=== PATIENT | female | born 1995 | race Caucasian/White ===

== ENCOUNTER 2025-09-04 08:00 | Outpatient (RCR) | payer BC, SELFPAY ==
--- NOTE | 2025-09-04 10:15 | BH.SGPN.GN ---
Behaviors/Verbalizations/Mental Status: []Eye contact is fair. Motor activity is appropriate. Appearance is disheveled. Speech is Appropriate. Mood is anxious. Affect is flat. Thoughts are linear and logical. No evidence of psychosis. Client Response/Progress/Benefit: [] Pt was an active participant in group discussions. Attentive during psychoeducation on the 4 communication styles (Passive, Passive-Aggressive, Aggressive, and Assertive) and the obstacles to effective communication. Contributed during interactive discussion on the benefits of communicating effectively. Worked well with peers to identify the benefits and disadvantages to the different communication styles. Pt believes that they are primarily passive. Benefited from increased understanding of communication styles and how these can impact effective communication. Will continue in [facility] tx to prevent decompensation, gain healthy coping skills, and improve daily functioning. Narrative Note: []
--- NOTE | 2025-09-04 11:10 | BH.SGPN.GN ---
Behaviors/Verbalizations/Mental Status: []Pt alert and oriented, casually dressed and appropriately groomed. Eye contact good. Motor activity wnl. Speech within normal limits. Affect constricted, mood anxious. Thoughts linear, logical, no signs of hallucinations or delusions. Client Response/Progress/Benefit: [] Pt responded well to session AEB Pt listening attentively to others and listening to input during group discussion on the pay offs and costs of the different communication styles. Pt able to connect how current communication style impacts mental health. Connected with peers’ comments about the importance of using assertive communication. Pt seemed to benefit from increasing awareness of healthy strategies to improve communication. Pt stated she would like to work on being more direct with her family about her needs and feelings. Will continue PHP tx to prevent decompensation, improve daily functioning, and decrease anxious thoughts. Narrative Note: []
--- NOTE | 2025-09-04 14:46 | BH.MDN_ITS ---
Multi-Disciplinary Note Note 60-min Individual: Time Started:: 08:10 Date: 09/04/25 Purpose of session/treatment goals addressed:: Purpose of session was to build rapport, gather background information, and identify treatment goals for PHP. Eye Contact:: Fair Motor Activity:: Appropriate Appearance:: Casual Speech:: Soft Mood:: Anxious and Depressed Affect:: Flat Thoughts:: Linear, Logical and No evidence of hallucinations/delusions noted Staff Interventions:: CBT techniques, rapport building, strengths perspective and treatment planning Client Response:: Client reported she recently temporarily moved from [facility] to [facility] because she recognized she needed to be around her parents and family during this mental health struggle. Client stated her mental health has significantly been impacted since giving 4 months ago. Client reported she is experiencing "severe" anxiety and depression since the of her baby. Client stated on May 10 she physically collapsed while at the store because she was having a difficult time eating, drinking, and sleeping due to her . Client reported she was transported to a emergency department and while she was in the ER room she attempted to kill herself by wrapping a cord around her neck. Client stated prior to attempted to kill herself she has no history of suicidal thoughts or attempt. Client noted she believes she did in a panic and in the moment. Client stated she was hospitalized at an inpatient psychiatric facility for 1 week at [place] and then completed a PHP and IOP program with [facility] in [place]. Client stated after completing these treatment program she was able to go back to work for 1 month. Client stated she had been doing really well for those 4 weeks but all of a sudden abou t 4 weeks ago her anxiety "snapped". Client stated she was experiencing panic attacks every 20 minutes for 5 days straight. Client stated she got admitted to a inpatient psychiatric facility for 5 days. Client stated she then dropped down to a PHP program and had only been able to complete 8 days of this program before deciding she needed to move back to [place] temporarily to be closer to family and support. Client stated she has history of anxiety throughout her life since she was about 11 years old but noted this is the most significant her anxiety has ever been. Client stated there is a family history of her mom and her paternal grandmother having depression and anxiety. Client stated her anxiety and depression are making it challenging for her to function in most areas of life. Client reported she is having a hard time completing her ADLs. Client reported she also does feel disconnected to her 4-month-old. Client stated her has been extremely supportive throughout this time. Client stated she does think it would be helpful to be living with her mom and stepdad to have the additional support during this time. Client stated she is still experiencing "severe" anxiety and additional depression despite the inpatient hospital and PHP program. Client stated her panic attacks have improved since the hospitalization but still feels like she cannot really function. Client reported while she is in PHP she would like to have improved mood stability, improved ability to manage her anxiety and depression, and wants to be able to eventually get back to functioning at home and with work. Client stated she is going to continue FMLA from her job until she can feel more stable. Risks/Concerns:: Client has history of 1 suicide attempt on May 10, 2025. Client noted this was out of character for her and denied any suicidal thoughts prior to the attempt. Client stated she believes it was an impulsive action due to the extreme anxiety and depression she was experiencing with the added stress of not sleeping or eating for days. Client reported since the suicide attempt she has not experienced active suicidal ideation, plan or intention. Client stated she does experience passive thoughts of daily in which she has thoughts of "I wish I did not wake up". Client stated she does not have access to firearms or stockpiled medications. Client identifies her family to be significant protective factor. Progress Toward Goals/Plan:: No progress noted as today is first day in PHP. Plan is for client to start PHP today and will evaluate treatment plan at end of the week. While in PHP pt would like to focus on improving emotion regulation and improve mood stability. Pt to continue PHP to improve daily functioning, improve healthy coping skills, and prevent decompensation. Time Stopped:: 09:05
--- NOTE | 2025-09-04 14:47 | BH.MTP_ITS ---
Master Treatment Plan Patient Information Program Physician:: Dr. Juárez Primary Therapist:: Terri Vázquez [facility] Estimated LOS Estimated LOS (in weeks):: 1 Problem/Goal #1 Problem/Goal #1 Stated Goal:: Client will reduce overall frequency, intensity, and duration of the anxiety so that daily functioning is not impaired. Description of Barriers: Potential barriers include: cognitive distortions, severe anxiety, panic attacks, low motivation, and avoidance of anxiety provoking situations. Functional Impact: Pt has two psychiatric hospital admissions in the past four months. Pt most recently was hospitalized 3 weeks ago due to having panic attacks every 20 minutes for 5 days in a row. Pt started a PHP program in [facility] but did not complete the program because she decided she needed to temporarily move to [place] to be around family. Pt is 4 months post- which is when mental health symptoms decompensated. Pt endorses daily anxiety, uncontrollable worry, avoidance of being alone by herself or alone with her baby, and difficulty completing ADL's. Pt currently on leave from work due to her MH symptoms. Pt states her anxiety and depression have been impacting her bonding with her baby. Pt states her takes care a lot of the tasks for their baby due to her high anxiety. Goal Relevant Strengths/Supports: Pt is intelligent, resilient, strong desire to get better, and reports a strong support system. Objectives Objective #1: Stated Objective: Client will learn and implement 2-3 calming skills to reduce overall anxiety and manage anxiety symptoms. Interventions: Therapist and group sessions will help client identify physiological warning signs of anxiety, increase awareness of thoughts that increase anxiety, and identify behaviors that reinforce anxious symptoms. Group and individual counseling will teach client calming skills to help manage anxious symptoms. Discharge Criteria: Client will have achieved this goal when can verbalize at least 2 calming skills and reports skills successfully help reduce anxious symptoms. Target Date: 09/10/25 Problem/Goal #2 Problem/Goal #2 Stated Goal:: Client will decrease depressive symptoms, negative thoughts, and anhedonia. Description of Barriers: Potential barriers include: cognitive distortions, severe anxiety, panic attacks, low motivation, and avoidance of anxiety provoking situations. Functional Impact: Pt has two psychiatric hospital admissions in the past four months. Pt most recently was hospitalized 3 weeks ago due to having panic attacks every 20 minutes for 5 days in a row. Pt started a PHP program in [place] but did not complete the program because she decided she needed to temporarily move to [place] to be around family. Pt is 4 months post- which is when mental health symptoms decompensated. Pt endorses daily anxiety, uncontrollable worry, avoidance of being alone by herself or alone with her baby, and difficulty completing ADL's. Pt currently on leave from work due to her MH symptoms. Pt states her anxiety and depression have been impacting her bonding with her baby. Pt states her takes care a lot of the tasks for their baby due to her high anxiety. Goal Relevant Strengths/Supports: Pt is intelligent, resilient, strong desire to get better, and reports a strong support system. Objectives Objective #1: Stated Objective: Client will learn and utilize 2-3 healthy coping strategies to manage depressive symptoms. Interventions: Therapist and group therapy will utilize CBT techniques to assist client with understanding the connection between thoughts, feelings and behaviors. Education will be provided on behavioral activation. Therapist will assist client in learning internal coping strategies to manage depressive symptoms, along with helping client identify triggers. Discharge Criteria: Client will have achieved this goal when can verbalize and has practiced at least 2 healthy coping strategies that successfully manage depressive symptoms. Target Date: 09/10/25
--- NOTE | 2025-09-05 10:10 | BH.SGPN.GN ---
Behaviors/Verbalizations/Mental Status: []Pt alert and oriented, casually dressed and groomed. Eye contact fair. Motor activity appropriate. Speech within normal limits. Affect congruent, mood anxious. Thoughts linear, logical, no signs of hallucinations or delusions. Client Response/Progress/Benefit: []Pt responded well to session AEB pt listening attentively to others and providing input throughout group discussions. Pt worked with group to identify potential barriers to effective problem-solving. Pt attentive and engaged during psychoeducation about the different problem-solving styles (impulsive-careless, avoidant, and problem solving). Pt shared current problem-solving style they utilize is impulsive-careless style. Pt seemed to benefit from increased awareness of current problem-solving style and the impact this style has on their mental health. Will continue PHP tx to prevent decompensation, decrease anxious avoidance, and challenge negative thoughts. Narrative Note: []
--- NOTE | 2025-09-05 11:00 | BH.SGPN.GN ---
Behaviors/Verbalizations/Mental Status: []Client alert and oriented, casually dressed and groomed. Eye contact good. Motor activity appropriate. Speech within normal limits. Affect congruent, mood euthymic. Thoughts linear, logical, no signs of hallucinations or delusions. Client Response/Progress/Benefit: [] Pt engaged in session AEB contributing to discussion and engaging in small group. Attentive during discussion on strategies for more effectively solving problems in personal life. Pt participated in small group for activity and did well practicing problem-solving skills with the group in the moment. Pt identified a current problem they are struggling to solve as: anxiety about falling asleep. Reports next step in resolving this as: gathering more information. Appeared to benefit from gaining strategies to help Pt better manage daily problems. Will continue IOP tx improve distress tolerance, challenge distortions, and prevent decompensation. Narrative Note: [] Behaviors/Verbalizations/Mental Status: []Client alert and oriented, casually dressed and groomed. Eye contact good. Motor activity appropriate. Speech within normal limits. Affect congruent, mood euthymic. Thoughts linear, logical, no signs of hallucinations or delusions. Client Response/Progress/Benefit: [] Pt engaged in session AEB contributing to discussion and engaging in small group. Attentive during discussion on strategies for more effectively solving problems in personal life. Pt participated in small group for activity and did well practicing problem-solving skills with the group in the moment. Pt identified a current problem they are struggling to solve as: anxiety about falling asleep. Reports next step in resolving this as: gathering more information. Appeared to benefit from gaining strategies to help Pt better manage daily problems. Will continue IOP tx improve distress tolerance, challenge distortions, and prevent decompensation. Narrative Note: [] Behaviors/Verbalizations/Mental Status: []Client alert and oriented, casually dressed and groomed. Eye contact good. Motor activity appropriate. Speech within normal limits. Affect congruent, mood euthymic. Thoughts linear, logical, no signs of hallucinations or delusions. Client Response/Progress/Benefit: [] Pt engaged in session AEB contributing to discussion and engaging in small group. Attentive during discussion on strategies for more effectively solving problems in personal life. Pt participated in small group for activity and did well practicing problem-solving skills with the group in the moment. Pt identified a current problem they are struggling to solve as: anxiety about falling asleep. Reports next step in resolving this as: gathering more information. Appeared to benefit from gaining strategies to help Pt better manage daily problems. Will continue IOP tx improve distress tolerance, challenge distortions, and prevent decompensation. Narrative Note: [] Behaviors/Verbalizations/Mental Status: []Client alert and oriented, casually dressed and groomed. Eye contact good. Motor activity appropriate. Speech within normal limits. Affect congruent, mood euthymic. Thoughts linear, logical, no signs of hallucinations or delusions. Client Response/Progress/Benefit: [] Pt engaged in session AEB contributing to discussion and engaging in small group. Attentive during discussion on strategies for more effectively solving problems in personal life. Pt participated in small group for activity and did well practicing problem-solving skills with the group in the moment. Pt identified a current problem they are struggling to solve as: anxiety about falling asleep. Reports next step in resolving this as: gathering more information. Appeared to benefit from gaining strategies to help Pt better manage daily problems. Will continue IOP tx improve distress tolerance, challenge distortions, and prevent decompensation. Narrative Note: []
--- NOTE | 2025-09-05 15:20 | BH.MDN_ITS ---
Multi-Disciplinary Note Note 60-min Individual: Time Started:: 12:02 Date: 09/05/25 Purpose of session/treatment goals addressed:: Purpose of session was to address goals 1 and 2 from MTP. Eye Contact:: Fair Motor Activity:: Slowed Appearance:: Disheveled Speech:: Appropriate Mood:: Anxious and Depressed Affect:: Constricted Thoughts:: Racing and No evidence of hallucinations/delusions noted Staff Interventions:: CBT techniques, mindfulness skills, rapport building, strengths perspective, goal setting, taught coping skills (guided meditation practiced in session) and other (Provided handout for homework about unwanted intrusive thoughts) Client Response:: Pt reported she had a "rough" morning because the moment she woke up this morning she had obsessive thoughts that she will not be able to go to sleep tonight. Patient stated that obsessive thoughts were so bad that she had a panic attack with significant physical symptoms. Patient stated because of her physical symptoms of her anxiety she felt like it was unsafe of her to drive to [facility] this morning so she had to get one of her family members bring her this morning. Patient reported over the last week she has been having significant obsessive thoughts "all day" about not being able to sleep. Patient reported she is averaging about 7 or 8 hours of sleep but noted she has multiple wake ups throughout the night. Patient stated she is frustrated because she feels like she cannot function due to her anxiety. Patient reported her anxiety keeps her from driving, eating, completing task, and from functioning. Patient completed [place] Depression Scale (EPDS) and scored a 23 out of 30. Per this Depression Scale a score over 13 likely indicates depressive illness. Patient also completed the Anxiety Screening Scale (PASS) and she scored a 71 out of 93. This score puts her in the severe symptoms range for this scale. Patient reports daily worries and fears that she will not swift to her child. Patient stated she is constant worries that she has difficulty stopping. Patient and therapist discussed strategies and skills that she has learned in different [facility] and IOP programs she recently attended. Client states she does find breathing skills, grounding, and going for walks to be helpful with managing her anxiety. Client noted she does try to challenge negative thoughts but does not find this to be as helpful currently. Client stated being around her baby can make her anxiety worse especially if her baby is crying. Client stated if her baby is crying she starts to have the fear that her baby will cry in the evening which will wake client up and we will admit. Client reported she does make herself feel around her baby majority of the day because if she is not she feels guilty. Client receptive to trying small intentional a cts with her baby to help with the bonding. Client identified to goal she has is to do skin to skin contact at least 5 minutes every day with her baby and spend at least 10 minutes intentionally playing with her baby. Client and therapist work together to develop a evening sleep routine because client reported currently she does not have 1. Identified her new sleep routine will be to take her medication around 730, take a shower and do personal hygiene, doing guided meditation, and laying in bed by 9 to 9:30 PM. Discussed that if client is still not sleepy when she lays in bed to have different activities that she could do to help distract the brain like crossword instead of sitting there worrying that she is not tired yet. Patient stated she is receptive to the plan. Risks/Concerns:: Patient denies suicidal ideation, plan, intention. future oriented. Progress Toward Goals/Plan:: Progress limited as it is pt's second day in PHP. Pt is reporting "obsessive" worries about not being able to sleep from the morning until it is time to go to bed. Pt stated she has been trying to go on walks and get out of the house as ways to help decrease her anxiety. Pt responded well to practicing a 3 minute guided meditation in session today, stated she found it to be helpful with relaxing her. Pt is to continue PHP to improve daily functioning, increase healthy coping, and prevent decompensation. Time Stopped:: 12:57
--- NOTE | 2025-09-06 10:10 | BH.SGPN.GN ---
Behaviors/Verbalizations/Mental Status: [] Pt alert and oriented, casually dressed and groomed. Eye contact fair. Motor activity appropriate. Speech within normal limits. Mood: depressed and anxious. Affect: congruent. Thoughts linear, logical, no signs of hallucinations or delusions. Client Response/Progress/Benefit: [] Pt participated when prompted during group discussions. Attentive during psychoeducation on self-sabotage and its impact on mental health. Attentive as peers worked to define self-sabotage and identify reasons individuals perform self-sabotage behaviors (easy route at the time, feel as those we don't deserve any better, FOF, comfortable, etc). Attentive as peers identified the forms of self-sabotage that impact their mental health. Attentive during psychoeducation on types of self-sabotage; Procrastination, perfectionism, self-medication, poor communication,and chronic cancelling. Seemed to benefit from gaining awareness about the self-sabotage. Pt to continue PHP tx to improve daily functioning, decrease anxious avoidance, and prevent decompensation.
--- NOTE | 2025-09-06 11:05 | BH.SGPN.GN ---
Behaviors/Verbalizations/Mental Status: [] Eye contact is good. Motor activity is appropriate. Appearance is disheveled. Speech is Appropriate. Mood is dysthymic and anxious. Affect is congruent. Thoughts are linear and logical. No evidence of psychosis. Client Response/Progress/Benefit: [] Pt responded well to session, engaged and contributing. Pt discussed with group things that contribute to mental wellness life. With peers, pt discussed things that would sabotage one's mental health wellness. Pt identified things pt personally does to sabotage as "avoid and let other people do things for me". Pt attentive during psychoeducation on ways to reduce self-sabotage and pt selected "opposite-action, challenge negative thoughts,and accountability" as skills that could help pt reduce self-sabotaging behaviors. Pt appeared to benefit from learning skills and gaining awareness of self-sabotaging behaviors. Pt will continue PHP tx to maintain safety, prevent decompensation/re-admission to psych unit, and to improve functioning to return to work. Narrative Note: []
--- NOTE | 2025-09-06 15:16 | BH.MDN_ITS ---
Multi-Disciplinary Note Note 30-min Individual: Time Started:: 12:05 Date: 09/06/25 Purpose of session/treatment goals addressed:: Purpose of session was to address goals 1 and 2 from MTP. Eye Contact:: Good Motor Activity:: Appropriate Appearance:: Casual Speech:: Appropriate Mood:: Anxious Affect:: Congruent Thoughts:: Linear, Logical and No evidence of hallucinations/delusions noted Staff Interventions:: thought challenging, psychoeducation on: (anxiety and impact avoidance has ), CBT techniques, strengths perspective and taught coping skills Client Response:: Client reported she was able to complete all the tasks from her checklist made during individual session yesterday. client stated she did find it more challenging to do the task of guided meditation and taking a shower before bed. Client reported her helped encourage her to complete each task. Client stated the reason she didn't want to shower before bed was because she kept having the fearful thought that taking a shower before bed would wake up up too much. client reported she actually found the shower to be relaxing. Client stated she was able to get "really good sleep" last night. Client stated she woke up and didn't feel the panic about not being able to sleep tonight. Client reported she wasn't able to drive this morning to [facility] because she was anxious due to it raining this morning. Client stated she had her dad drive her here and wants to work on being able to eventually drive herself. Client stated her anxiety does result in her avoiding a lot of different situations. Client reported she avoids numerous tasks that are connected to taking care of her baby due to anxiety. Client stated she has been avoiding so many things that she now has lost confidence in her ability. client reported she avoids being alone with her baby, avoids being the one to feed her baby, has her take the baby when the baby is crying, and she avoids being alone by herself. Client connected to psychoeducation about how avoidance of anxious situations make anxiety worse. Client connected with education about use of a fear ladder to help her get back to functioning and decrease avoidance. Client stated the task she feels able and ready to work on is starting with feeding her baby instead of allowing her do it. client agreed it she has to engage in exposure to her anxiety provoking situations to help build her confidence and decrease her anxiety. Risks/Concerns:: Denies active suicidal ideation, plan, or intention to date. future oriented. Progress Toward Goals/Plan:: Progress noted with client reporting improved sleep last night by following through with the evening routine created in last individual therapy session. client also followed through with goals of engaging in two different bonding activities with her baby yesterday. Client was provided resource of a baby bonding class that is led through [facility] twice a month. Client stated she was interested in attending this class to continue helping with building the swift. Client receptive to working on decreasing her anxious avoidance by starting to take small exposure steps to dec rease anxiety. Plan is for client to continue PHP to improve daily functioning, decrease anxious avoidance, and prevent decompensation. Time Stopped:: 12:37
--- NOTE | 2025-09-07 09:00 | BH.SGPN.GN ---
Behaviors/Verbalizations/Mental Status: [] Eye contact is good. Motor activity is appropriate. Appearance is disheveled. Speech is Appropriate. Mood is depressed and anxious. Affect is congruent. Thoughts are linear and logical. No evidence of psychosis. Reviewed daily check in sheet and no reports of suicidal ideations or intent. Client Response/Progress/Benefit: [] Pt participated when prompted. Attentive. Daily symptom tracker notes /5 for depression and 3/5 for anxiety. She shared with the group that she drove herself to [facility] this morning. Elaborated on why this was a significant win which has resulted in increased confidence. Pt has been unable to drive due to anxiety since her recent psychiatric admission on 08/12/24. She is continuing to put conscious effort into utilizing daily skills and habits. Seeing progress per self-report. Benefited from group support, encouragement, and feedback. Will continue in [facility] to maintain safety, prevent decompensation, and improve functioning to return to work. Narrative Note: []
--- NOTE | 2025-09-07 10:30 | PCM.BH.PSYEV ---
Intake Vital Signs 09/07/25 11:23 Height 1.7 m Weight: 142.882 kg BP 145/83 H Pulse 66 Intake Visit Reasons: Post depression Allergies Penicillins Adverse Reaction (Verified 09/07/25 11:06) PT UNSURE OF REACTION quinidine Adverse Reaction (Verified 09/07/25 11:06) tachycardia Medications Medication Instructions Recorded Confirmed Type amlodipine 10 mg tablet (Norvasc) 10 mg PO DAILY 30 days #30 tabs 09/07/25 Rx clonidine HCl 0.1 mg tablet 0.1 mg PO TID 30 days #90 tabs 09/07/25 Rx hydroxyzine pamoate 50 mg capsule 50 mg PO BID PRN anxiety #60 caps 09/07/25 Rx lurasidone 40 mg tablet (Latuda) 40 mg PO DAILY 30 days #30 tabs 09/07/25 Rx quetiapine 100 mg tablet (Seroquel) 100 mg PO QHS 30 days #30 tabs 09/07/25 Rx sertraline 100 mg tablet (Zoloft) 100 mg PO DAILY 30 days #30 tabs 09/07/25 Rx trazodone 50 mg tablet 50 mg PO QHS #30 tabs 09/07/25 Rx PFSH () Surgical History (Updated 09/07/25 @ 11:33 by Terri Nevarez) History of delivery History of wisdom tooth extraction HPI () History of Present Illness History provided by: patient Chief complaint: Significant anxiety and depression HPI: Kristi is a 29y/o female who presented to [facility] Behavioral [facility] PHP program for further evaluation and treatment of depression and anxiety of peripartum onset. Patient reportedly had been doing well while she was with her daughter Ava but after she gave in May her mental health significantly declined. She became increasingly anxious and depressed and had significant difficulty eating, drinking, sleeping leading to her passing out on May 10 in a store in [place] where she was living with her and daughter. Her family took her to the ED ultimately in May due to her significant functional decline with poor ADLs and severe anxiety and depression and while awaiting acceptance to a facility she took the EKG leads and attempted to strangle herself. Ultimately she was hospitalized for a week. She reports they diagnosed her with bipolar disorder as she had a vague history of having a couple days at a time where she did not need as much sleep or rest and was productive. She was placed on medication and improved somewhat however early in August she suddenly began having severe anxiety and panic attacks which led to a second psychiatric admission where she was for 1 week and subsequently transition to a PHP. She was on Latuda 40 mg, Seroquel 100 mg, hydroxyzine as needed and had been started on Zoloft 50 mg at the beginning of this month and increased to 100 mg on . She had not yet completed the PHP program in [place] however stopped this program to move back to [place] to be near family (08/31/2025 ) and enrolled in the [facility] behavioral health PHP program. Since moving back patient still feels depressed, anxious, overwhelmed but is slightly better than previous. Reports that there had been some difficulties due to her, her , and her daughter Rosario moving in with patient's mother and stepfather in a small house that also has 3 dogs however they have been very helpful with her and with the baby. Despite doing somewhat better she notes awful appetite and has lost almost 100 pounds since her daughter was born, anhedonia, poor appetite, difficulty with sleep, low energy, poor concentration though that is slowly improving. Does note crying spells. She has also been having difficulty bonding with her baby more recently which is leading to increased stress and guilt. He is on Seroquel which helped with sleep initially and she feels it still helps her stay asleep but no longer feels like it helps her fall asleep so she finds her self anxious through most of the day make she is worried she will not be able to fall asleep. Sometimes still wakes up 1-2 times overnight, confirmed that she does not wake up overnight with the baby and that her family is presently doing that. In regards to her medication she does think Latuda was helpful, Zoloft she has noted some improvement anxiety but has been struggling with her depression, she said it was hypothesized that due to her poor p.o. intake she has not absorbing the Latuda very well and that may be causing it not necessarily the Zoloft. Also endorsed that she had significant mood swings with hormones and that some of her destabilization seem to correlate with her period. She notes she historically had problems with mood fluctuations with her periods as well but not to this extent. Anhedonia/Decreased interest: +Anhedonia Appetite: Very poor Sleep: Difficulty falling asleep Energy: Low energy Concentration: Was poor but slowly improving Memory: Difficulty Guilt: Struggling due to her difficulty bonding with her daughter Crying spells: Reports crying spells and that she is "very emotional." SI: Denies any active SI HI: No AH: No VH: Denies Psychosis: While in college she had an episode where she was very stressed and felt the room was on fire but was told later that it was not. Had no other episodes and this was self-limited. Margret: Reports she was diagnosed with bipolar 2 in the hospital, when asked why she said she has had periods where she did not feel like she needed much sleep or rest and was productive and would get things done. She never felt that these episodes were problems and she just thought that she was doing well, they would usually last a day or 2 at a time and does not note any long strings of symptoms or anything that negatively impacted her functioning and after these episodes were over she go back to normal and would not feel depressed, does note some change surrounding hormone fluctuations with her period as well. Anxiety: Significant anxiety regarding her daughter, difficulty bonding with her daughter, having it find a new job, driving, trying to fall asleep Panic attacks: Notes discrete episodes of anxiety that significantly worsened earlier this month OCD: No Eating d/o hx: No PTSD: Hx PTSD and reports a history of a trauma in her past that she did not disclose but also reports she had a very traumatic and had a and that this has been triggering for her and she is looking into EMDR Current psychiatric medications: Hydroxyzine 50 mg twice daily as needed, Latuda 40 mg daily, Seroquel 100 mg nightly, Zoloft 100 mg Side effect concerns: Notes she feels like her skin will get hot and random patches sometimes, she is also not sure if she has had worsened depression from any of the medications or if it is situational more due to poor p.o. intake with her Latuda Past psychiatric treatment Hx: -First age experiencing symptoms: Reports she has always been anxious and remembers being anxious all the way back to 5 years old but not to the point that impacted her functioning. These most recent symptoms started in May after the of her daughter -Previous diagnoses: Reports a diagnosis of bipolar 2 -Psychiatrist: Just moved back to the area and has yet to establish with one -Therapist: Has yet to establish with one in [place], participating in PHP program -Psychiatric hospitalizations: 1 week in May in [place] and a subsequent hospitalization at the beginning of August for 1 week followed by PHP -Suicide attempts: While patient was in the ED awaiting psychiatric placement in May she attempted to strangle herself with a 12-lead, reports it was impulsive and not planned and she had not been feeling that way leading up to that, no other attempts of suicide -NSSI: No -Medication trials: Reports being on Celexa for 14 years for some baseline anxiety that was helpful -ECT or TMS?: No Medical Hx: -Medical problems: HTN, ADITI wearing CPAP and reports compliance, malaria -Surgeries: C section and wisdom teeth -Allergies: quinine , and PNC -Medications: See home med list Substance use Hx: -Alcohol: No -Drugs: No -Rehab: No -Tobacco use: No Family Hx: -Mental illness: "Everybody has anxiety and depression." Dad's mom was hospitalized for post depression and patient's mom also struggled with depression -Suicide attempts or completions: No -Substance Use: Aunt with issues with pills but is since , cousin with IV drug abuse and will use "anything you can inject" -General medical conditions: Cancer, DMII Psychosocial: -Born/raised: Born and raised in [place] -Childhood: Reports her childhood was "Pretty good" however her parents had an ugly divorce which caused anxiety -Parents: Currently living with mom and stepfather, her father lives around the [facility] and [place] and reports they are both very good source of support -Siblings: one brother and two step siblings who she gets along with very well -Current living situation and location: Moved back to [place] 1 week ago and is living with her mother, stepfather, their 3 dogs, her and her daughter. Prior to that she was in [place] and had been there for about 6 years, she moved there for work -Marital status: , her is from [place] but moved with her to [place] and subsequently moved back. 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 She reports she likes work and it gives her a sense of filament and would like to go back to work as able -Worship affiliation: Sikh, she attend [employer] - hx: Denies -Access to guns: Denies -Legal problems: Denies Review of systems () Narrative Medical ROS: General: Denies fever/chills HENT: Denies headache, denies stuffy nose, denies sore throat EYES: Denies changes in vision Resp: Denies cough, denies shortness of breath Cardiac: Denies chest pain GI: Denies abdominal pain, denies changes in bowel, denies nausea/vomiting : Denies changes in urination Extremity: Denies swelling MSK: Denies weakness Neuro: Denies any numbness/tingling Heme: Denies any bleeding or bruising Skin: Denies rashes Psychiatric: No complaints voiced Exam () Mental Status Exam- Psych () Appearance casually dressed, adequately groomed and obese Attitude cooperative and engaged Activity/Motor Behavior psychomotor slowing Speech regular rate and other (Slightly soft with decreased in flexion) Mood dysphoric Affect restricted Thought Process linear and logical Thought Content no delusions and no hallucinations Suicidal Ideation none Homicidal Ideation none Attention intact Concentration intact Sensorium/Orientation awake and alert Memory/Cognition intact Insight fair Judgement fair Exam () Narrative Exam Narrative: General: Alert, oriented, no apparent distress, morbidly obese HEENT: Atraumatic, normocephalic Eyes: extraocular movements grossly intact Neck: Supple Respiratory: normal respiratory effort Cardiovascular: no edema appreciated GI: nondistended Extremities: Moving all extremities Neuro: No overt focal neurological deficits Psych: Cooperative, depressed Assessment & Plan () Assessment & Plan (1) Major depressive disorder, single episode, severe with peripartum onset: Plan: Symptoms based on my interview most consistent with MDD, single episode, severe with anxious distress and with peripartum onset. She had some vague anxiety earlier in life but does not seem that she had previously met MDD criteria until the of her daughter and since then has had poor appetite with weight loss, poor sleep, low energy, poor concentration, crying spells, guilt with anhedonia. Slightly better than she was initially but still reporting high levels of anxiety and depression. Just had her Zoloft increased to 100 mg 2 weeks ago and she is unsure yet how effective this is but thinks it may be helping her anxiety slightly but she is not sure if it could be worsening her depression but it was hypothesized to her by her previous provider that the worsen depression may impart be due to her poor p.o. intake with her Latuda. One of her first biggest complaints to me was her difficulty falling asleep and her anxiety throughout the day about sleep, discussed various options for medication adjustments and ultimately is agreed upon to try trazodone to help her fall asleep as Seroquel helps her stay asleep. Ultimately can adjust patient's other medications as well but had recent increase in Zoloft and hesitant to make multiple changes at once to be able to assess any positive or negative effects or side effects. Patient agreeable. Does seem that she has an association with hormonal shifts with her depression and anxiety and that she has further decompensations around the time of her period, She is to begin a control recommended by her OB which she has she is just yet to start which may help as she does feel when she was younger control helped her moods as well. Patient notes the diagnosis of bipolar II disorder, during her interview I was able to elicit vague symptoms that usually lasted a day or 2 and did not impact her functioning and when she was not feeling as motivated anymore she would go back to her usual self when they did seem to be some association with hormones as well, do not feel criteria were met based on my interview. r/o bipolar disorder. Plan The patient will begin PHP in Behavioral Health at [facility]. The structure, support, education, and group therapy are intended to prevent symptom escalation that could lead to a higher level of care, such as inpatient hospitalization. I expect the patient to demonstrate timely and meaningful improvement in acute symptoms. Based on a review of the patient's vitals and medical history, they are medically capable of tolerating the PHP level of care. The goal is to be successfully discharged to a lower level of care. Medications: New hydroxyzine pamoate 50 mg PO BID PRN 60 caps 0RF anxiety lurasidone (Latuda) must administer with food (at least 350 calories) 40 mg PO DAILY 30 tabs 0RF 30 days trazodone 50 mg PO QHS 30 tabs 0RF amlodipine (Norvasc) 10 mg PO DAILY 30 tabs 0RF 30 days clonidine HCl 0.1 mg PO TID 90 tabs 0RF 30 days quetiapine (Seroquel) 100 mg PO QHS 30 tabs 0RF 30 days sertraline (Zoloft) 100 mg PO DAILY 30 tabs 0RF 30 days Charges/Coding Multi Select Codes Behavior Health Behavior Health Psychiatric Evaluation: 44278 Psych Diag Exam w/ Medical Services
--- NOTE | 2025-09-07 10:40 | BH.NA ---
Physical Data Vital Signs Pulse Rate: 66 Blood Pressure: 145/83 Height/Weight Height: 1.7 m Weight:: 142.882 kg Weight in Pounds: 315.0 lbs Current Medication Compliance Medication Compliance Do you take your medication as prescribed?: Yes Functional Assessment Sleep Pattern Describe any problems with sleeping: Client states she is sleeping 8-9 hours per night. Sensory/Communication Assess Vision Problems Do you have any vision problems?: Glasses Communication Problems Do you have difficulty understanding what people are saying?: No Medical Problems/History Cardiac Conditions Cardiovascular: Hypertension (new in the last month) and Other (See comments) (history of mild heart murmur) Respiratory Conditions Respiratory: Other (See comments) (ADITI- has a PAP that she uses nightly) Surgical History Surgical History Have you had any surgeries? If so, list type and date:: Yes (, wisdom teeth extraction) Substance Abuse Substance Abuse Please describe substance abuse in the last 30 days:: Client denies alcohol, tobacco, substance or caffeine use. Mental Status Summary Mental Status Significant Findings/Observations on Appearance and Mood:: Client is alert and oriented x 4. Client is mildly unkempt. Client is cooperative with assessment. Client makes good eye contact. Client's voice has normal rate and volume. Client appears mildly depressed. Client has a somewhat restricted affect. Client makes logical associations and has normal processing. Client denies delusions/hallucinations. Client denies SI. Suicide Assessment Suicidal Ideation Are you currently or have you been suicidal in the past?: Yes Suicidal Intentional Rating Scale (SIRS): Suicidal thoughts (past) Physician Notification Past Psychiatric History MH Treatment Hx Past Psychiatric Medications:: Celexa (was on for 14 years), Carmen Age of first mental health symptoms: Client states she was first on Celexa around age 16 for anxiety/depression. Describe (age, circumstance, etc) any past hospitalizations: May 2025- 7 days at [facility] after 05/10/25 in the ER when she wrapped cord around her neck. Client states she did a PHP program after. August 12-2024- at [facility]. Current providers for mental health treatment (counselor, psychiatrist, family independence case manager, etc.): None since her hospitalizations. Fall Risk Assessment Age Age: Less than 60 Mental Status Mental Status: Willing & able to ask for assistance when needed Physical Status Physical Status: No problems Impairments Impairments: None Elimination Elimination: Continent AND independent Gait or Balance Gait or Balance: Walks independently Hx of Falls History of falls in the past 6 months: Has fallen Medications/Substances Psychotropics:: Antidepressants, Antipsychotics and Antihistamines (e.g. Benadryl) Medications/substances used within the past 24 hours or ordered to administer: 3 or more of the medications/substances listed above Total Score Total Points:: 4 RN Summary of Impressions Impressions Recommendations Impressions: Psychiatric Issues: depression, generalized anxiety disorder Level of Care How do the client's current symptoms and functional deficits support need for this level of care?: Client found this IOP online and self-referred herself due to recent hospitalizations and mental health. Client had a baby in April 2025 and has been struggling with depression and anxiety since. Client passed out 05/10/25 and went to the ER where she attempted to wrap a cord around her neck as a suicide attempt when in ER. Client was hospitalized for 7 days after that and went to a [facility]. Client states after that, she was able to function and went to work for 4 weeks before her mental health got worse again and she was again hospitalized. Client states she was having almost constant panic, hot flashes, insomnia and decreased appetite. Client states since starting Zoloft, her panic has improved slightly but client still has panic attacks at least daily and a decreased appetite. Client also reports racing thoughts, crying, decreased ADL's, and decreased motivation. Nutritional Screen Height/Weight Height: 1.7 m Weight:: 142.882 kg Weight in Pounds: 315.0 lbs Nutrition Screening Normal Weight: 147.418 kg Normal/Usual Weight in Pounds: 325.0 lbs Have you lost weight without trying: No Have you been eating poorly because of a decreased appetite: Yes Recently been on tube feeds, TPN, or have any nutritional access device in place: No Have any large open wounds or wounds that are not healing: No Calculated Weight Change: [phone] Change in weight Score: 1 MST Screening Tool Score: 2 *Automatic Nutrition referral for a score of 2 or greater.*: Client states her appetite has varied over the last several months, and states she has lost 10 or more pounds this month due to decreased appetite due to anxiety. Client declines offer to dietary consult.
--- NOTE | 2025-09-07 11:10 | BH.SGPN.GN ---
Behaviors/Verbalizations/Mental Status: [] Pt alert and oriented, casually dressed and groomed. Eye contact good. Motor activity appropriate. Speech within normal limits. Affect congruent, mood euthymic. Thoughts linear, logical, no signs of hallucinations or delusions. Client Response/Progress/Benefit: [] Pt was an active participant, engaged in activities and discussion. Pt able to identify ways they negatively contribute to crucial conversations and pt was engaged during psychoeducation of the different ways to build interpersonal effectiveness skills. Pt and peers practiced mirroring and active listening in partners. Group reviewed [employer] and used the handout to help map out how they would like a crucial conversation in their life to go. Pt shared with group that they want to have a crucial conversation with their mom about taking her baby too often when upset and not letting client have a chance to take care of them. Pt will continue IOP tx to prevent decompensation, improve daily functioning, and increase self care. Narrative Note: []
[2025-09-07 11:23] VITALS: BP 145/83; PULSE 66
--- NOTE | 2025-09-07 13:26 | BH.DR.ITP ---
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
--- NOTE | 2025-09-07 15:43 | BH.MDN ---
Multi-Disciplinary Note Note 30-min Individual: Time Started:: 12:05 Date: 09/07/25 Purpose of session/treatment goals addressed:: Purpose of session was to address goals 1 and 2 from MTP. Eye Contact:: Good Motor Activity:: Appropriate Appearance:: Casual Speech:: Appropriate Mood:: Anxious Affect:: Congruent Thoughts:: Linear, Logical and No evidence of hallucinations/delusions noted Staff Interventions:: CBT techniques, rapport building, discharge planning, strengths perspective and goal setting Client Response:: Pt reported she was able to complete most of the checklist last night. Pt stated she didn't get to a couple of the task because they had trick or treating last night. Pt stated she was able to do the feeding for her baby two times yesterday which she stated went really well. Pt reported she recognizes she needs to have a conversation with her mom about allowing patient to take on more task with patient's baby because she realized that her mom immediately took the baby from client when patient's mom got home. Patient stated she realizes the reason her mom takes over task immediately is because of how significant patient's mental health symptoms have been since of her 4-month-old baby. Patient reported she explained to her mom the reason behind why she is to start doing certain tasks especially with her baby to help decrease anxious avoidance and build confidence. Patient stated she did have a panic attack yesterday around 7:00 PM which lately has been pretty consistent time as to when she has panic attacks. Patient stated that panic attacks are typically connected to fear of not being able to fall asleep. Patient stated overall her anxious thought patterns have significantly decreased compared to just a few days ago in which she was thinking about not being able to sleep throughout the entire day. Patient stated she has been trying to follow through with the evening routine of taking her nighttime medications, take a shower, doing guided meditation, and going to bed. Patient reported she did get improved sleep last night which is her second night in a row of improved sleep. Patient reported she signed up with her to do a baby bonding class that starts next week. Patient stated last night she took a shower with no one sitting in the bathroom. Pt reported she really hasn't done anything alone for the past month due to her severe anxiety. Pt stated she gained confidence with the tasks she was able to complete. Pt reported this morning she was able to drive herself to [facility] which is the longest she's been alone in a month. Pt reported this weekend she has numerous activities planned which she believes will be helpful with not having too much down time. Pt agreed for the weekend to continue to work on small daily exposure goals to help with decreasing anxious avoidance. Risks/Concerns:: Pt denies suicidal ideation, plan, or intention to date. future oriented. Progress Toward Goals/Plan:: Progress noted with pt reporting improved sleep for the last two nights, decreased anxious thoughts about sleep throughout the day, intentionally taking time to engage in bonding activities with her baby, and decreasing her anxious avoidance of various tasks. Pt reported she is still having 1-2 panic attacks daily, but notes this is of decreased frequency. Pt and therapist discussed discharge plan for [facility] and pt agreed she is ready to discharge from [facility] on Wednesday and will start IOP on Wednesday. Pt stated she would like to come the entire week because she is finding benefit to the group and individual sessions. Time Stopped:: 12:35
--- NOTE | 2025-09-10 10:05 | BH.SGPN.GN ---
Behaviors/Verbalizations/Mental Status: [] Eye contact is good. Motor activity is appropriate. Appearance is disheveled. Speech is Appropriate. Mood is depressed and anxious. Affect is congruent. Thoughts are linear and logical. No evidence of psychosis. Client Response/Progress/Benefit: [] Pt participated during the group discussion, providing input and remaining attentive during psychoeducation. Participated in experiential activity. Pt contributed during interactive discussion on the consequences of unhealthy expression of emotions. Worked with group to identify several consequences which included hurting relationships and isolating oneself. Contributing during interactive discussion on common "potholes" to effectively communicating such as; avoidance, isolation, bottling up emotions, yelling, and several more. Pt was able to relate and make connections between the experiential activity and the overall topic, managing emotions through activity. Benefited from increased awareness of how stress and emotions can impact one's ability to communicate. Will continue in PHP to prevent decompensation, improve daily functioning, and increase the use of healthy coping skills Narrative Note: []
== END 2025-09-07 23:59 ==
LOC: BHPHP 08:00
PROVIDERS: Referring Provider Internal Medicine; Visit Provider Internal Medicine
DX: F33.2 Major depressive disorder, recurrent severe without psychotic features (principal)
CPT/HCPCS: H0035; 90832; 90837; G0410

== ENCOUNTER 2025-09-10 08:36 | Outpatient (RCR) | payer BC, SELFPAY ==
--- NOTE | 2025-09-10 09:00 | BH.SGPN.GN ---
Behaviors/Verbalizations/Mental Status: [] Eye contact is good. Motor activity is appropriate. Appearance is casual. Speech is Appropriate. Mood is anxious. Affect is congruent. Thoughts are linear and logical. No evidence of psychosis. Reviewed daily check in sheet and no reports of suicidal ideations or intent. Client Response/Progress/Benefit: [] Pt participated at times during the group discussions. Attentive. According to pt she had “ a pretty good weekend” despite “ a few panic attacks”. She continues to struggle however reports decreased intensity and frequency. She attempted some physical activity with her and is making a conscious effort to practice daily skills. Reports being hopeful about the future. Emotion is “neutral” today. Progress noted. Benefited from group support, encouragement, and feedback. Will continue in [facility] to maintain safety, prevent decompensation/re-admission, and improve functioning to return to work. Narrative Note: []
--- NOTE | 2025-09-10 11:10 | BH.SGPN.GN ---
Behaviors/Verbalizations/Mental Status: []Client alert and oriented, casually dressed and groomed. Eye contact good. Motor activity appropriate. Speech within normal limits. Affect congruent, mood anxious. Thoughts linear, logical, no signs of hallucinations or delusions. Client Response/Progress/Benefit: []Client engaged in session AEB client listening attentively to peers and providing input. Attentive during psychoeducation on 4 zones of regulation. Pt able to identify feelings and behaviors for each zone. Pt identified coping skills one can use to support self in each zone. Pt stated belief that pt is in the green zone today. Pt reports plan to engage in movement and grounding today. Benefited from increased education on zones of regulation or stages of alertness for emotions and healthy coping skills to use for each zone. Pt will continue IOP tx to increase self-awareness, improve application of skills, and prevent decompensation. Narrative Note: []
--- NOTE | 2025-09-10 13:24 | BH.MDN ---
Multi-Disciplinary Note Note 30-min Individual: Time Started:: 12:05 Date: 09/10/25 Purpose of session/treatment goals addressed:: Purpose session was to address goals 1 and 2 from MTP. Eye Contact:: Good Motor Activity:: Appropriate Appearance:: Casual Speech:: Appropriate Mood:: Anxious and Depressed Affect:: Constricted and Other (Tearful at times) Thoughts:: Linear, Logical and No evidence of hallucinations/delusions noted Staff Interventions:: thought challenging, psychoeducation on: (Cognitive triangle and behavior activation), CBT techniques, discharge planning, strengths perspective and goal setting Client Response:: Client reported overall her weekend went "good". Client stated she went to her grandparents house in which she was really nervous and anxious that she either would have a panic attack or she would get a lot of questions about why she has temporarily moved back home. Client reported the visit with her grandparents went way better than she ever expected and her grandparents were more supportive than expected. Client stated she also had a moment in which she felt more present and enjoyed spending time with her family playing card games. Client reported she really has been struggling with feeling connected or having joon of doing things so found it to be a win to have a moment in which she was present and engaged with others. Client stated she has spent a lot of time over the weekend with her baby and has been following through with the anxiety exposure goals of being the one to feed her baby. Client noted she has observed her anxiety is starting to decrease after each time she feeds the baby. client stated she also has been able to shower alone with much less anxiety and drove herself for the second time to [facility] today. Client reported she is still experiencing significant amount of worry throughout her day, but finds the frequency to be less and has found some skills to help decrease the duration of the anxiety spiral. Client stated sleep was better Wednesday and Wednesday, but last night was a struggle. Client reported she laid in bed for about an 1 hour before she fell asleep. Client stated although she couldn't fall asleep she walked herself through a meditation which she noted seemed to help her feel more relaxed and less anxious. Client reported she took the Trazodone for hte first time last night and she didn't find it to help her feel sleepy at all. Client noted she has been struggling more with feelings of guilt and shame about her difficulty with connecting with her baby. Client stated she has been engaging in the bonding activities discussed in previous sessions but still doesn't feel connected. Client did note she's never really been excited when she's been around newborns prior to herself giving . Client stated she hasn't really found the baby stage to be really fun and doesn't feel the same way about her baby that she sees other people feel. Client reported this lack of excitement and connection towards her own baby makes her feel depressed. Therapist normalized client's response to the stage and helped her process feelings about this. Client stated she will be going to the baby connection class on this week. Client struggling with more depressed feeling today and came up with plan to help her take care of self. Client stated she plans to either go for a walk or play pickle ball with her today because she has found movement to be helpful to her mood. Risks/Concerns:: Denies suicidal ideation, plan, or intention to date. future oriented. Progress Toward Goals/Plan:: Progress noted with client reporting decreased anxiety when being the person to feed her baby, decreased anxiety when alone, and decrease intensity and frequency of her anxiety spirals. Client has been following through with her habits checklist. Client shared more feelings of guilt and shame about her difficulty with bonding with her baby. Client responded well to psychoeducation about behavior activation. Client has shown progress with improved sleep, decreased panic attacks, and decrease anxious avoidance since being in [facility]. Plan is for client to discharge from [facility] today and will start IOP tomorrow. Time Stopped:: 12:35
--- NOTE | 2025-09-21 11:57 | PCM.BH.PN ---
Intake Vital Signs 09/07/25 11:23 09/21/25 12:04 Height 1.7 m 1.7 m Intake Visit Reasons: worsened anxiety Allergies Penicillins Adverse Reaction (Verified 09/07/25 11:06) PT UNSURE OF REACTION quinidine Adverse Reaction (Verified 09/07/25 11:06) tachycardia Medications Medication Instructions Recorded Confirmed Type amlodipine 10 mg tablet (Norvasc) 10 mg PO DAILY 30 days #30 tabs 09/14/25 Rx clonidine HCl 0.1 mg tablet 0.1 mg PO TID 30 days #90 tabs 09/14/25 Rx hydroxyzine pamoate 50 mg capsule 50 mg PO BID PRN anxiety #60 caps 09/14/25 Rx lurasidone 40 mg tablet (Latuda) 40 mg PO DAILY 30 days #30 tabs 09/14/25 Rx quetiapine 100 mg tablet (Seroquel) 100 mg PO QHS 30 days #30 tabs 09/14/25 Rx trazodone 50 mg tablet 50 mg PO QHS #30 tabs 09/14/25 Rx sertraline 100 mg tablet (Zoloft) 150 mg (1.5 x 100 mg) PO DAILY 30 09/21/25 Rx days #45 tabs HPI () History of Present Illness History provided by: patient Chief complaint: Worsened anxiety HPI: -Current psychiatric medications: Latuda 40 mg daily, Seroquel 100 mg at bedtime and Zoloft 100 mg daily, trazodone 50 mg nightly -SUBJECTVE: Patient seen today due to worsened anxiety and depression throughout the week. She reports she had been doing well and was sleeping better with the trazodone however now is back to not sleeping well, she is not eating or taking care of herself and feels very hopeless and is crying a lot. She feels overwhelmed. Has passive thoughts of not wanting to be alive without any active suicidal thoughts. She does note she is a week late on her period which she thinks is due to medicine or stress so she has not been able to start her control she was supposed to start it at the onset of her period. She does not believe she is . She does note a history of significant mood lability with hormone shifts around the time of her period. Exam Mental Status Exam- Psych () Appearance casually dressed, adequately groomed and obese Attitude cooperative Activity/Motor Behavior limited eye contact Speech regular rate Mood dysphoric Affect labile (Tearful) Thought Process linear and logical Thought Content no delusions and no hallucinations Suicidal Ideation passive Homicidal Ideation none Attention intact Concentration intact Sensorium/Orientation awake and alert Memory/Cognition intact Insight fair Judgement fair Assessment & Plan () Assessment & Plan (1) Major depressive disorder, single episode, severe with peripartum onset: Plan: Kristi reports she had been doing somewhat better however over the past week has decompensated and is not taking care of her self, has had poor p.o. intake (does confirm however she is taking the adequate amount of calories with her Latuda) and is having crying spells and cannot sleep. Suspect some of this is hormone mediated as she has a history of mood swings and challenges around the time of hormone shifts and she will be starting her period soon. Encouraged her to take the control as prescribed when she starts her period as per previous instructions by her prescribing provider. Discussed options regarding medications, ultimate goal is for patient to be on only 1 antipsychotic, likely Latuda, so increasing Seroquel is not ideal but would be an option especially given sleep complaints. Also discussed Zoloft and increasing this medication, ultimately patient would like to increase her Zoloft. She does have hydroxyzine as needed at home but has not been taking it as she is not sure if she is allowed to or what effect it supposed to have. She reports the only time she took it was when she was in the hospital. Discussed that she can take it in the short-term as needed for anxiety especially at bedtime to see if this helps with acute symptoms with overall (and potentially sleep ) with goal of not needing it and decreasing anxiety levels. Patient agreeable with this plan. She denies any active thoughts of hurting herself, notes that she has very good support at home and will not be alone, if she does have any thoughts of harming herself she is willing to go to the hospital over the weekend if needed but currently does not think she needs acute inpatient hospitalization/does not want acute hospitalization and given her level of social support and safety plan do think it is reasonable to try to manage this on an outpatient basis with medication adjustments and IOP. Medications: Changed From sertraline 100 mg PO DAILY 30 days 30 tabs 0RF To sertraline 150 mg (1.5 x 100 mg) PO DAILY 30 days 45 tabs 0RF Charges/Coding Behavior Health Behavior Health EST Pt E/M: 24772 Est Pt Level IV
== END 2025-09-10 13:58 | disposition home or self-care (01) ==
LOC: BHPHP 08:36
PROVIDERS: Referring Provider Internal Medicine; Visit Provider Internal Medicine
DX: F33.2 Major depressive disorder, recurrent severe without psychotic features (principal)
CPT/HCPCS: H0035; 90832; G0410

== ENCOUNTER 2025-09-11 08:00 | Outpatient (RCR) | payer BC, SELFPAY ==
--- NOTE | 2025-09-11 09:10 | BH.COMM ---
Communication Note Communication with Client Communication Note: Verbal order to step down from PHP level of care to IOP level of care by Dr. Reaves with dx F32.2. Necessary paperwork completed.
--- NOTE | 2025-09-11 10:05 | BH.SGPN.GN ---
Behaviors/Verbalizations/Mental Status: [] Eye contact is good. Motor activity is appropriate. Appearance is casual. Speech is Appropriate. Mood is depressed. Affect is congruent. Thoughts are linear and logical. No evidence of psychosis. Client Response/Progress/Benefit: [] Pt was an active participant during group discussions and group activities. This portion of group was very psychoeducation heavy and pt was attentive during psychoeducation. Engaged during activity in which they identified which type of foods (i.e. carbs, sugar, salt, fast food, caffeine, etc) they seek out when sad, tired, angry, stressed, anxious, etc. Pt was able to identify the impact that certain foods have on their mental health through group example which was beneficial. Benefited from increased awareness of the connection between nutrition and mental health. Will continue in IOP to prevent decompensation/re-admission to psych unit, improve healthy coping, and improve functioning. Narrative Note: []
--- NOTE | 2025-09-11 11:10 | BH.SGPN.GN ---
Behaviors/Verbalizations/Mental Status: []Pt alert and oriented, casually dressed and groomed. Eye contact good. Motor activity appropriate. Speech within normal limits. Affect congruent, mood euthymic and anxious. Thoughts linear, logical, no signs of hallucinations or delusions. Client Response/Progress/Benefit: [] Pt was an active participant during group discussions and group activities. This portion of group was very psychoeducation heavy and pt was attentive during psychoeducation. Engaged during activity in which they identified their own maintenance cycles with food and how it impacts their mental health symptoms. Pt and peers identified barriers to breaking these cycles as well as ways to combat barriers. Pt stated she wants to work on reducing sugar intake. Benefited from increased awareness of the connection between nutrition and mental health and from identifying strategies. Will continue in IOP to prevent decompensation, increase self-confidence, and improve daily functioning. ??? Narrative Note: []
--- NOTE | 2025-09-12 10:10 | BH.SGPN.GN ---
Behaviors/Verbalizations/Mental Status: [] Pt alert and oriented, casually dressed and groomed. Eye contact good. Motor activity appropriate. Speech within normal limits. Affect congruent, mood euthymic. Thoughts linear, logical, no signs of hallucinations or delusions. Client Response/Progress/Benefit: [] Pt was an active participant in group discussions and activity. Attentive during psychoeducation. Pt along with peers were able to identify several negatives on the picture given to the group. Pt and peers also identified positives in the picture and made the connect that finding positives is much more difficult. Interactive discussion on the definition of perspective, how perspective is formed, and why perspective is important in treatment. Pt along with peers also identified that perspective can either motivate and encourage treatment or be a barrier to receiving help. Pt shared how perfective can shift based on life changes. Will continue in IOP to promote gains, further decrease anxiety, and increase self-confidence. Narrative Note: []
--- NOTE | 2025-09-12 11:10 | BH.SGPN.GN ---
Behaviors/Verbalizations/Mental Status: [] Pt alert and oriented, casually dressed and groomed. Eye contact good. Motor activity appropriate. Speech within normal limits. Affect congruent, mood euthymic. Thoughts linear, logical, no signs of hallucinations or delusions. Client Response/Progress/Benefit: [] Pt was attentive and contributed in small and larger group discussion. Pt completed strengths exploration worksheet and identified personal strengths to include: empathic and ambitious. Pt able to acknowledge how these strengths are helping her and can continue to help pt in her mental health journey. Shared wanting to focus on finding activities or hobbies that support her strengths and skillet. Benefited from identifying personal strengths and strategies for enhancing use of identified strengths. Pt to continue IOP tx to promote use of healthy coping skills, increase self-confidence, and reduce negative thinking patterns. Narrative Note: []
--- NOTE | 2025-09-12 16:03 | BH.MDN_ITS ---
Multi-Disciplinary Note Note 30-min Individual: Time Started:: 09:00 Date: 09/12/25 Purpose of session/treatment goals addressed:: Purpose session was to address goals 1 and 2 from MTP. Eye Contact:: Good Motor Activity:: Appropriate Appearance:: Casual Speech:: Appropriate Mood:: Anxious and Depressed Affect:: Full Thoughts:: Logical Staff Interventions:: thought challenging, CBT techniques and taught coping skills Client Response:: This therapist met with client while client's primary therapist in program is out. Client reported that she is doing a little better each day. Client stated that she is still working towards goals that she set, but making some progress, but also is not able to some days. Client was able to validate self on progress she made, but not trying to be too hard on self when not meeting them. Client shared update on slowly taking more care of her daughter, she relayed how her daughter had a full blown tantrum and client was able to stick with rocking and soothing her until she calmed down. Client artis cated this is something she has not been able to do prior with having to utilize her mom or partner to help when this has happened. Client reported that she has been utilizing breathing techniques and preventative self care as main forms of coping currently. Client reported that her sleep has improve significantly past couple days, with being able to fall asleep and sleeping the entire night. Bisi lynch reported taking her prescribed trazadone each night with no significant drowsiness, but indicated it makes her feel ready to sleep. Client relayed plans on attending a baby bounding group at [facility] and has set plans to meet with individual therapist specializing in depression this week. Client also shared how she has had 1 interview this week for a new job and two more scheduled. Client indicated the interview caused no anxiety for client and makes her feel more normal with thoughts of going back to work. Client reported utilizing more positive self talk and was receptive to discussion about changing roles and struggle to adjust. Client reported feeling like a burden to with him currently taking on more baby responsibilities. She indicated plans to stay in the area to be around supports for the foreseeable future. Client shared that she has some concerns on changing relationship with with losing some intimacy with focus shifting to baby and her MH. Client indicated they have started playing pickleball together to spend more time with each other and that client enjoyed doing that. Risks/Concerns:: Denies suicidal ideation, plan, or intention to date. future oriented. Progress Toward Goals/Plan:: Progress noted with client reporting consistent use of coping skills and positive self talk. Client has shown progress with improved sleep, enjoyment in activity of pickleball, decreased panic attacks, and increased ability to handle more responsibility with baby . Plan is for client continue IOP.
--- NOTE | 2025-09-13 09:00 | BH.SGPN.GN ---
Behaviors/Verbalizations/Mental Status: [] Pt alert and oriented, Casually dressed and groomed. Eye contact fair. Motor activity appropriate. Speech within normal limits. Affect congruent, mood calm. Thoughts linear, logical, no signs of hallucinations or delusions.Reviewed pt?s symptom tracker today, denies suicidal ideation, plan, and intent.09/13/25 Client Response/Progress/Benefit: []Pt was an active participant in group discussions. Attentive. Per patients daily symptom tracker, pt indicates a 4/5 for depression and a 3/5 for anxiety, with 5 being severe. Pt shared that she was able to spend an evening alone with her baby while her was visiting friends. Pt stated that this would normally cause her anxiety and panic attacks, but she utilized her coping skills learned in individual counseling to combat anxious thoughts and feelings. Pt's second positive was being asked back for a second interview at a local job, meaning that if she gets the position, she can stay in town around her support system rather than having to move back to [place]. Pt's stressor was dealing with pressure from others to appear happy and interact with her baby. Pt stated that comments from others causes self-doubt about her progress. Pt seemed to benefit from support from peers. Will continue IOP tx to promote healthy coping mechanisms, improve confidence, and prevent decompensation.
--- NOTE | 2025-09-13 10:00 | BH.SGPN.GN ---
Behaviors/Verbalizations/Mental Status: [] Eye contact is good. Motor activity is appropriate. Appearance is casual. Speech is Appropriate. Mood is dysthymic and anxious. Affect is congruent. Thoughts are linear and logical. No evidence of psychosis. Client Response/Progress/Benefit: [] Pt engaged in session AEB client listening attentively to peers and providing input. Attentive and contributed to discussion as group worked on defining?self-confidence?and identifying benefits of?self-confidence which included; increased self-esteem, improved relationships, increased resilience, better adaptive coping, stronger boundaries, helps us try new tasks, decreased depression, more hopeful, and more creative. Also participated during interactive discussion on factors that impact one's self confidence such as trauma, upbringing, economic status, and current/past relationships. Benefited from increased education on?self-confidence?and what effects it. Pt will continue IOP to prevent decompensation/re-admission to psych unit, stabilize mood, increase healthy coping, and improve functioning to return to work. Narrative Note: []
--- NOTE | 2025-09-13 11:10 | BH.SGPN.GN ---
Behaviors/Verbalizations/Mental Status: [] Client alert and oriented, casually dressed and groomed. Eye contact good. Motor activity appropriate. Speech within normal limits. Affect congruent, mood anxious and depressed. Thoughts linear, logical, no signs of hallucinations or delusions. Client Response/Progress/Benefit: [] Pt engaged in session AEB client listening attentively to peers and providing input. Attentive and contributed to discussion as group worked on identifying thought patterns and behaviors that negatively effect self-confidence. Pt identified behaviors that effect their confidence as: self-judgement and unrealistic expectations. Engaged in confidence building activity and worked with the group to identify strategies for improving self-confidence. Pt identified plans to begin setting small daily goals as a means of improving own self-confidence. Benefited from increased education on self-confidence building skills. Pt will continue IOP tx to increase self-confidence, improve distress tolerance skills, and prevent decompensation. Narrative Note: []
--- NOTE | 2025-09-14 07:51 | PCM.BH.PN ---
Intake Vital Signs 09/07/25 11:23 09/14/25 07:52 Height 5 ft 7 in 5 ft 7 in Weight: 315 lb BP 145/83 H Pulse 66 BH Intake Visit Reasons: follow up Allergies Penicillins Adverse Reaction (Verified 09/07/25 11:06) PT UNSURE OF REACTION quinidine Adverse Reaction (Verified 09/07/25 11:06) tachycardia Medications ?Medication ?Instructions ?Recorded ?Confirmed ?Type amlodipine 10 mg tablet (Norvasc) 10 mg PO DAILY 30 days #30 tabs 09/14/25 Rx clonidine HCl 0.1 mg tablet 0.1 mg PO TID 30 days #90 tabs 09/14/25 Rx hydroxyzine pamoate 50 mg capsule 50 mg PO BID PRN anxiety #60 caps 09/14/25 Rx lurasidone 40 mg tablet (Latuda) 40 mg PO DAILY 30 days #30 tabs 09/14/25 Rx quetiapine 100 mg tablet (Seroquel) 100 mg PO QHS 30 days #30 tabs 09/14/25 Rx sertraline 100 mg tablet (Zoloft) 100 mg PO DAILY 30 days #30 tabs 09/14/25 Rx trazodone 50 mg tablet 50 mg PO QHS #30 tabs 09/14/25 Rx HPI () History of Present Illness History provided by: patient Chief complaint: Significant anxiety and depression HPI: Kristi is a 29y/o female who presented to follow up evaluation. Patient admits to giving in April and has been experiencing severe depression and anxiety since this time. Has been admitted x2 in [place] and is currently living in [place] with her parents for support. 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 Started sertraline the second week of August and then increased to 100 mg. Has been on the first last 3 weeks. Does feel like her anxiety is improving and has been able to use coping skills. Was having panic attacks regularly. Still having some fairly severe depression. Denies any active thoughts of suicide, but did have some passive thoughts of not being alive. This is her first child, named Ava. Sleep has been doing better. Was started on trazodone, doesn't make sleepy but does help with feeling relaxed. Is currently also taking latuda and seroquel per hospitalization. Describes periods in the past of decreased need for sleep and increased activity. Denies significant agitation. Denies any history of grandiosity. Denies flight of ideas. No other prior admissions. Describes some episodes of weepiness, but not persistently. Review of systems () Constitutional Denies: fever(s), chills, change in weight or fatigue Eyes Denies: change in vision or blurry vision Ears, Nose, Mouth, Throat Denies: throat pain, neck pain or change in hearing Cardiovascular Denies: chest pain, palpitations or dyspnea Respiratory Denies: dyspnea, cough or wheezing Gastrointestinal Denies: abdominal pain, nausea, vomiting, diarrhea or constipation Genitourinary Denies: dysuria or urinary frequency Musculoskeletal Denies: back pain, neck pain, joint pain or muscle weakness Integumentary/Breast Denies: rash or new lesions Neurological Denies: headache(s), dizziness or confusion Endocrine Denies: fatigue or excessive sweating Hematologic/Lymphatic Denies: easy bruising or easy bleeding Allergic/Immunologic Denies: wheezing Exam Mental Status Exam- Psych () Appearance casually dressed, adequately groomed and obese Attitude cooperative and engaged Activity/Motor Behavior MSE activity/motor behavior finding no adventitious movements Speech regular rate and regular volume Mood depressed Affect restricted Thought Process linear and logical Thought Content no delusions and no hallucinations Suicidal Ideation none Homicidal Ideation none Attention intact Concentration intact Sensorium/Orientation awake and alert Memory/Cognition intact Insight fair Judgement fair Assessment & Plan () Assessment & Plan (1) Major depressive disorder, single episode, severe with peripartum onset: Plan: - reported history of possible Bipolar diagnosis in the past however no clear or significant evidence of amadeo/hypomania elicited. No acute suicidality, no homicidality, specifically no thoughts of harm towards baby - discussed medications at length and discussed half-way about potential of reducing antipsychotic burden without clear history of need for mood stabilization - will continue meds for now to allow improved stability before additional phamaracologist changes Plan - The patient will start the IOP in [facility] at [facility] as the structure, support, education and group therapy with ideally prevent worsening of patient's symptoms which could result in admission to higher level of care such as [facility] or psychiatric admission. I have reasonable expectation that the patient will make timely and significant improvement in the presenting acute symptoms as a result of the program and eventually be discharged to a lower level of care. Charges/Coding Multi Select Codes Behavior Health Behavior Health EST Pt E/M: 18337 Est Pt Level IV
--- NOTE | 2025-09-14 10:10 | BH.SGPN.GN ---
Behaviors/Verbalizations/Mental Status: [] Motor activity is appropriate. Appearance is casual. Speech is Appropriate. Mood is euthymic. Affect is full. Thoughts are linear and logical. No evidence of psychosis. Client Response/Progress/Benefit: [] Pt was an engaged participant AEB listening attentively to others, taking notes, and providing feedback in small group discussions. Attentive during psychoeducation AEB by note taking and providing some input. Pt worked along with peers in small groups to define inappropriate guilt and appropriate guilt. Interactive discussion on examples of both inappropriate and appropriate guilt. Pt able to connect impact inappropriate guilt can have on MH. Benefited from increased awareness of guilt and the differences between appropriate and inappropriate guilt. Pt to continue IOP tx to prevent decompensation, gain healthy coping skills, and increase emotional regulation skills. Narrative Note: []
--- NOTE | 2025-09-14 13:40 | BH.MDN ---
Multi-Disciplinary Note Note 30-min Individual: Time Started:: 09:00 Date: 09/14/25 Purpose of session/treatment goals addressed:: Purpose session was to address goals 1 and 2 from MTP. Eye Contact:: Fair Motor Activity:: Appropriate Appearance:: Casual Mood:: Anxious and Depressed Affect:: Full Thoughts:: Logical Staff Interventions:: thought challenging, CBT techniques and strengths perspective Client Response:: This therapist met with client while client's primary therapist in program is out. Client reported that she is doing okay and a little better each day. Client shared with this worker that she had the baby bonding class and attended a session with a outpatient therapist. Client reported that the class went well, but that client was finding herself putting pressure on herself to feel something in terms of bonding with baby. Client was able to redirect her thoughts during class and indicated she reminded herself to be present and patient. Client indicated it was an enjoyable experience and has plans to attend another class on September 27. Client reported the outpatient therapy went very well and that client felt connected to therapist due to her having a 7 month old baby and being relatable. Client indicated feeling hopeful for making goals and progress with them. Client reported experiencing feelings of guilt with and feels he's walking on eggshells with her and fears he is holding back with being fully honest due to her MH struggles. Client open to having family meetings with supports to have them be fully aware of client's needs and where she is at. Client indicated she feels like she in getting to a place where she can handle a little more responsibility of the baby and engage in conversations about finances with . Client receptive to validation of progress and reported trying to incorporate more self-validation. Client reports that her mind still goes to guilt surrounding around the deal she made with for her to work and him to take care of baby and feels she's not during her part right now. This therapist reinforced that client's taking steps to get back to work and improve MH. Client then indicated that she is now in the top 4 candidates for a job she applied and interviewed for. Client shared that she has a daily checklist which helps her stay on task with goals made in session. Risks/Concerns:: Denies suicidal ideation, plan, or intention to date. future oriented. Progress Toward Goals/Plan:: Progress noted with client reporting increased daily functioning and consistency with meeting goals. Client followed through with attending baby bonding class and met with new outpatient therapist. Plan is for client to continue IOP to improve daily functioning, decrease anxious avoidance, and prevent decompensation. Time Stopped:: 09:35
--- NOTE | 2025-09-18 06:28 | BH.DR.ITP ---
Initial Treatment Plan Patient Information Visit Information: ADMISSION DATE: 09/14/2025 EXPECTED LOS: 4-6 weeks Diagnoses:: MDD, severe, peripartum onset Problems/Symptoms Problem #1:: MDD Symptom:: poor sleep, low energy, low mood, poor appetite, low motivation, guilt/worthlessness, anhedonia
--- NOTE | 2025-09-18 09:00 | BH.SGPN.GN ---
Behaviors/Verbalizations/Mental Status: [] Eye contact is good. Motor activity is appropriate. Appearance is casual. Speech is Appropriate. Mood is anxious and depressed. Affect is congruent. Thoughts are linear and logical. No evidence of psychosis. Reviewed daily check in sheet and no reports of suicidal ideations Client Response/Progress/Benefit: [] Pt was an active participant in group discussions. Attentive. Daily symptom tracker notes 3/5 for anxiety and 2/5 for depression. Able to identify mental health wins and healthy habits. I cooked dinner last night which is a big deal. According to pt it has been several months since she prepared dinner due to her mental health struggles. Also discussed not getting good sleep two night ago. She has struggled with ruminating extensively on her sleep routine. I would wake up in the morning and worry about if I could sleep that night. Thought regarding sleep could consume her whole day. Proud that she did not allow this to happened yesterday. Able to reframe, challenge, and utilize skills to not catastrophize and increase anxiety which led to falling asleep at reasonable time last night. Progress noted. Benefited from group support, encouragement, and feedback. Will continue in IOP to maintain safety, stabilize mood, and improve functioning to return to work. Narrative Note: []
--- NOTE | 2025-09-18 10:10 | BH.SGPN.GN ---
Behaviors/Verbalizations/Mental Status: []Pt alert and oriented, neatly dressed and groomed. Eye contact good. Motor activity appropriate. Speech within normal limits. Affect congruent, mood calm. Thoughts linear, logical, no signs of hallucinations or delusions. Client Response/Progress/Benefit: [] Pt responded well to session AEB contributing to discussion, taking notes, and listening attentively to others. Group discussed the benefits of managed anger and anger as a secondary emotion. Pt participated in discussions on anger triggers and responses. Group reported outward personal signs of anger as lashing out verbally, crying, and being impulsive. Group Identified examples of anger cycles and as well the emotions that contribute to anger. Appeared to benefit from increased knowledge of the underlying emotions that impact anger and increased self-awareness of the internal and external consequences of anger. Pt will continue IOP tx to increase distress tolerance, improve daily functioning, and further reduce anxiety symptoms. Narrative Note: []
--- NOTE | 2025-09-18 11:10 | BH.SGPN.GN ---
Behaviors/Verbalizations/Mental Status: [] client alert and oriented, casually dressed and groomed. Eye contact good. Motor activity appropriate. Speech within normal limits. Affect congruent, mood euthymic. Thoughts linear, logical, no signs of hallucinations or delusions. Client Response/Progress/Benefit: [] Client was an engaged participant throughout group AEB client providing input throughout discussion. Client contributed to the continued discussion of how people express anger as well as the underlying emotions of anger. Client participated in group activity that highlighted strategies to cope with anger. Group brainstormed healthy coping skills to help prevent anger and cope with it in the moment which included: mindfulness, deep breathing, journaling, going outside, and music. Client stated would like to work on using music to help with calming self down. Client appeared to benefit from brainstorming with the group potential strategies to manage anger in healthy ways. Recommended continued IOP to continue working on fear ladder, promote healthy coping skills, and prevent decompensation.
--- NOTE | 2025-09-20 09:00 | BH.SGPN.GN ---
Behaviors/Verbalizations/Mental Status: [] Eye contact is good. Motor activity is appropriate. Appearance is casual. Speech is Appropriate. Mood is depressed and anxious. Affect is congruent. Thoughts are linear and logical. No evidence of psychosis. Reviewed daily check in sheet and no reports of suicidal ideations Client Response/Progress/Benefit: [] Pt participated at times during the group discussions. Attentive. Daily symptom tracker notes 4/5 for anxiety and 3/5 for depression. Reports overall mood and functioning are ?worse?. Pt states ? My anxiety is still bad ? I?m struggling?. Believes that she is regressing. Group was supportive and normalized anxiety as she has been pushing herself with exposure and job interviews the past week. Benefited from group support, encouragement, and feedback. Will continue in IOP to maintain safety, prevent decompensation, and improve functioning to return to work. Narrative Note: []
--- NOTE | 2025-09-20 11:10 | BH.SGPN.GN ---
Behaviors/Verbalizations/Mental Status: []Client alert and oriented, casually dressed and groomed. Eye contact fair. Motor activity appropriate. Speech within normal limits. Affect congruent, mood anxious. Thoughts linear, logical, no signs of hallucinations or delusions. Client Response/Progress/Benefit: [] Pt responded well to session, attentive. Engaged in psychoeducation and discussion about finishing the stages of change. Did well to process activity and work with group to relate the strategies used to overcome barriers in the activity to managing change in own life. Pt identified a change they would like to make is working on accepting new stage in her life. Pt identified currently being in contemplation stage for this change. Appeared to benefit from identifying a small goal to work towards. Pt will continue IOP tx to prevent decompensation, challenge distorted/negative thoughts, and continue working on decreasing anxious avoidance. Narrative Note: []
--- NOTE | 2025-09-20 13:53 | BH.MDN ---
Multi-Disciplinary Note Note 60-min Individual: Time Started:: 10:20 Date: 09/20/25 Purpose of session/treatment goals addressed:: Purpose of session was to address tx plan goals #1 and #2. Eye Contact:: Good (tearful throughout) Motor Activity:: Appropriate Appearance:: Casual Speech:: Appropriate Mood:: Anxious and Depressed Affect:: Congruent Thoughts:: Linear, Logical and No evidence of hallucinations/delusions noted Staff Interventions:: motivational interviewing, CBT techniques, strengths perspective and goal setting Client Response:: Client tearful during group and requested to meet with someone. This therapist met with client as client's primary therapist in program was running group sessions today. Client crying and stated ?today?s a really bad day, I?m really anxious and I don?t know what to do?. Stated that nothing has changed since last individual session and she is unsure of what brought on her anxiety. Pt has been struggling with post- anxiety and depression since giving in May. She reports that she has experiencing an increase in anxious thoughts and while she was sitting in group, she suddenly had thoughts of ?What if I made a huge mistake??, ?What if I shouldn?t have become a mother??, and ?I can?t do this, they?re better off without me?. Became tearful again and expressed shame and guilt over struggling to adjust to parenthood, not knowing how to swift with her daughter, and struggling to enjoy being a mother. Therapist normalized client?s thoughts and feelings and worked with client to identify her expectations of motherhood prior to becoming a parent. Pt shared that she had always looked to her mother as the example of what a ?good mother is? and is upset with herself for providing her daughter with what her mother provided for her. Expressed that her mother has always been very warm, nurturing, supportive loving, and emotionally sensitive. In further conversation, client able to identify that expecting to display these characteristics herself may be unrealistic, as this is not how she would have described herself prior to motherhood. Noted that those are the qualities she sees in her which may be why this phase of parenthood is more natural for him. Described herself as more motivated, passionate, independent, and organized. Able to recognize that this stage of parenting has decreased her ability to be as planned/organized and independent as she is used to. Did well to practice self-compassion for this. Went on to discuss struggling with feeling uncomfortable being ?silly? with her daughter who is not yet verbal. Worked with therapist to identify how she can connect with her daughter and in ways that align with her strengths/personality characteristics. Shared she enjoys crafts/scrapbooking, playing board games, organizing, and movies. Identified activities that align with these as making an alphabet baby book with her daughter?s had and foot prints, organizing the bottles and baby clothes, as well as playing a board game with her during her daughter?s nap over the weekend. Pt calm and able to return to group by end of session. Risks/Concerns:: Denies suicidal ideation, plan, or intention to date. future oriented. Progress Toward Goals/Plan:: Some regression noted per pt self-report of of increased anxiety, racing thoughts, and inappropriate guilt. Reports influx in panic and crying spells as a result. Increased negative self-talk and unrealistic expectations of self. Did well to work with therapist to problem solve, normalize her symptoms, and identify skills to better cope with sx as well. Able to thought challenge and identify things that align with her own values to connect with daughter and . Plan is for client to continue IOP to improve daily functioning, increase mood stability, and prevent decompensation. Time Stopped:: 11:15
--- NOTE | 2025-09-21 09:00 | BH.SGPN.GN ---
Behaviors/Verbalizations/Mental Status: [] Pt alert and oriented, Casually dressed and groomed. Eye contact good. Motor activity appropriate. Speech within normal limits. Affect congruent, mood anxious. Thoughts linear, logical, no signs of hallucinations or delusions. Reviewed pt?s symptom tracker today, denies suicidal ideation, plan, and intent.09/21/25 Client Response/Progress/Benefit: []Pt was an active participant in group discussions. Attentive. Per patients daily symptom tracker, pt indicates a 4/5 for depression and a 5/5 for anxiety, with 5 being severe. Pt was tearful when talking about her stressor, which she stated is feeling extremely overwhelmed and anxious. Pt stated that she is not sure why she feels so anxious today, but she did not sleep well the night before, which could be the reason. Despite feeling anxious, pt was able to list two mental health positives. Pt's reported positives were not getting anxious when she was unable to sleep last night, which she typically worries about excessively, and making it to group today despite being anxious and tired. Pt was supportive and attentive to others in the group. Pt seemed to benefit from support from peers. Will continue IOP tx to promote healthy coping mechanisms, decrease negative thinking patterns, and prevent decompensation.
--- NOTE | 2025-09-21 10:10 | BH.SGPN.GN ---
Behaviors/Verbalizations/Mental Status: [] Eye contact is good. Motor activity is appropriate. Appearance is casual. Speech is Appropriate. Mood is anxious. Affect is congruent. Thoughts are linear and logical. No evidence of psychosis. Client Response/Progress/Benefit: [] Pt was an active participant in group discussions. Attentive during psychoeducation. Contributed during interactive discussions in which peers attempted to define crisis. Group identified examples of crisis. Group also worked together to identify warning signs and unhealthy responses to crisis which included impulsivity, isolation, significant sleep changes, irrational thoughts/behaviors, and suicidal thoughts. Pt identified top 3 personal warning signs as:eating less or not at all, crying, panic attacks. Benefited from increased understanding of crisis and awareness of personal responses to crisis. Pt will continue IOP tx to increase distress tolerance skills, increase health coping, and improve functioning to return to work. Narrative Note: []
--- NOTE | 2025-09-21 11:15 | BH.SGPN.GN ---
Behaviors/Verbalizations/Mental Status: []Pt alert and oriented, appropriate grooming/appearance. Eye contact good. Motor activity appropriate. Speech within normal limits. Affect constricted, mood depressed and anxious. Thoughts linear, logical, no signs of hallucinations or delusions. Client Response/Progress/Benefit: []Pt was an active participant in group discussions. Attentive during psychoeducation. In small group pt along with peers developed an active plan for their crisis warning signs. Pt identified three crisis warning signs as well as an action plan for each. One crisis warning sign was crying spells. Pt identified strategies to help with this such as: opposite emotion activities, engaging in self-care, timer, and opposite action. Benefited from increased awareness of crisis warning signs and by developing crisis intervention strategies. Will continue in IOP to improve distress tolerance, challenge distortions, and prevent decompensation. Narrative Note: []
--- NOTE | 2025-09-24 10:10 | BH.SGPN.GN ---
Behaviors/Verbalizations/Mental Status: [] Eye contact is good. Motor activity is appropriate. Appearance is casual. Speech is Appropriate. Mood is anxious and depressed. Affect is congruent. Thoughts are linear and logical. No evidence of psychosis. Client Response/Progress/Benefit: [] Pt engaged participant AEB listening to others, engaging in activity, and providing feedback throughout. Attentive during psychoeducation and provided insight into obstacles that impede mental wellness. Pt shared with group current mental health reality and desired mental health reality. Identified barriers to desired reality which included difficulties with unrealistic expectations, negative self-talk, and guilt. Benefited from taking look at current mental health state and obstacles for progress. Pt to continue in IOP tx to prevent decompensation, stabilize mood, and improve functioning. Narrative Note: []
--- NOTE | 2025-09-24 11:10 | BH.SGPN.GN ---
Behaviors/Verbalizations/Mental Status: [] Eye contact is good. Motor activity is appropriate. Appearance is casual. Speech is Appropriate. Mood is anxious. Affect is congruent. Thoughts are linear and logical. No evidence of psychosis. Client Response/Progress/Benefit: [] Pt was an engaged participant in group discussion and activity. Worked with group to identify strategies to help overcome barriers and obstacles to desired reality. Group developed strategies for the common barriers. Identified personal barriers to desired reality which included Self-doubt, guilt, all or nothing thinking, and comparisons. Was able to identify a skill to implement immediately to address unfair comparisons. Pt seemed to benefit from increased repertoire of healthy coping skills/strategies to overcome common barriers to moving forward. Will continue in IOP to prevent decompensation, stabilize emotions, increase healthy coping, and improve functioning. Narrative Note: []
--- NOTE | 2025-09-24 13:31 | BH.MDN_ITS ---
Multi-Disciplinary Note Note 60-min Individual: Time Started:: 09:05 Date: 09/24/25 Purpose of session/treatment goals addressed:: Purpose of session was to address tx plan goals #1 and #2. Eye Contact:: Good Motor Activity:: Appropriate Appearance:: Casual Speech:: Appropriate Mood:: Anxious and Depressed Affect:: Full Thoughts:: Linear Staff Interventions:: thought challenging, CBT techniques, strengths perspective and taught coping skills Client Response:: This therapist met with client while client's primary therapist in program is out. Client reported that she is not doing good and had a bad weekend with increased anxiety. Client reported feeling hopeless and has been trying to fill her time, but is running out of things to do and will only look forward for the end of the day to go to bed. Client shared that over the weekend her mom and family questioned if she is feeling connected to baby. Client felt they viewed her like a monster due to their line of questioning and internally feels poorly of herself due to not enjoying the time spent with her baby and feels pressure to do so. Client open to having conversation with mom on triggering questions and how they resulted in her feeling. This therapist normalized feelings of client not enjoying the baby stage and shifted focus on client's strengths. Client able to identify strengths, but still reverted back to negative thoughts about herself due to not being like her mom who was a stay at home mom. When asking client what factors contribute to her experiencing more anxiety, she indicated days she is at home and when not having scheduled events like IOP. This therapist and client discussed ways client could set her day up to be more structured. Client shared she could take over more responsibilities of the household like grocery shopping, for example. Client agreeable to getting out anxious energy by going for a walk or going to her dad's house to go on treadmill on days weather is bad. Client open to finding things to do that illicit fulfillment rather than only force herself to things that don't and hope to enjoy them. This therapist provided client with validation of feeling disappointed with how has been and not what client had hoped for herself. Client tearful majority of session and also reported feeling disappointed with going back on progress she made with experiencing more anxiety and having to have her help her with showering again. Client reported wanting nothing more than to enjoy being a mom and be bonded to baby. This worker discussed child development with client and encouraged client to research different stages of a baby/toddler for client to learn ways she can interact with baby and instill that this stage baby is in changes so client can utilize her strengths more in the future with taking care of baby. This worker also reinforced the steps client is taking to improve mental health and how progress is not always linear. Risks/Concerns:: Denies suicidal ideation, plan, or intention to date. future oriented. Progress Toward Goals/Plan:: Regression noted per pt report of of increased anxiety, feelings of hopelessness, and inappropriate guilt. Client reported having to have help her shower again. Did well to work with therapist to problem solve, normalize her symptoms, and identify plan reduce fe elings of anxiety. Client has session with outpatient therapist scheduled for 09/25. Client agreeable to plan and was able to identify some strengths to combat negative self talk. Plan is for client to continue IOP to improve daily functioning, increase mood stability, and prevent decompensation. Time Stopped:: 09:58
--- NOTE | 2025-09-26 10:15 | BH.SGPN.GN ---
Behaviors/Verbalizations/Mental Status: [] Client alert and oriented, casually dressed and groomed. Eye contact good. Motor activity appropriate. Speech within normal limits. Affect congruent, mood euthymic and anxious. Thoughts linear, logical, no signs of hallucinations or delusions. Client Response/Progress/Benefit: [] Client responded well to session AEB taking notes throughout and listening attentively to others. Client was attentive throughout group activity identifying famous individuals and how they overcame failure to be successful. Client helped group identify how fear of failure can impact mental health and relationships. Group identified it leads to self-sabotage, not trying, avoidance, and isolation. Client participated in experiential activity, working with group members to problem solve. Appeared to benefit from increased knowledge of fear of failure. Will continue IOP tx to improve self-confidence, reduce distorted thinking patterns, and increase overall functioning. Narrative Note: []
--- NOTE | 2025-09-26 11:15 | BH.SGPN.GN ---
Behaviors/Verbalizations/Mental Status: [] Client alert and oriented, casually dressed and groomed. Eye contact good. Motor activity appropriate. Speech within normal limits. Affect congruent, mood euthymic and anxious. Thoughts linear, logical, no signs of hallucinations or delusions. Client Response/Progress/Benefit: [] Client responded well to session, engaged in the experiential activity and attentive throughout group processing. Client completed fear of failure worksheet and was able to identify thoughts and behaviors that reinforce personal fear of failure including negative thoughts. Client participated in small group discussion regarding strategies to overcome fear of failure. Identified wanting to work on leaning into supports. Appeared to benefit from increased knowledge of strategies to combat fear of failure and gaining self-awareness. Client will continue IOP tx to promote gains in reduced depressive symptoms and to reduce anxiety and avoidance. Narrative Note: []
--- NOTE | 2025-09-26 13:25 | BH.MDN ---
Multi-Disciplinary Note Note 30-min Individual: Time Started:: 09:15 Date: 09/26/25 Purpose of session/treatment goals addressed:: Purpose of session was to address tx plan goals #1 and #2. Eye Contact:: Good Motor Activity:: Appropriate Appearance:: Casual Speech:: Appropriate Mood:: Anxious and Depressed Affect:: Full Thoughts:: Linear Staff Interventions:: thought challenging, motivational interviewing, mindfulness skills, strengths perspective and taught coping skills Client Response:: This worker met with client while primary therapist is out. Client reported that she is hopeful today, but is experiencing a lot of anxiety and pushing through it. Client reported that she is feeling slightly better since Wednesday's session. Client reflected on skills used over the past couple days to manage feelings of panic and anxiety which included: visualization, accessing supports, going on a walk, and deep breathing. Client reported that she had conversation with her mom to start taking on small responsibilities to invoke more independence and feelings of fulfillment. Client then started to cry when discussing triggers that set off negative thinking patterns. Client indicated that when she is in public, random people will make comments like you are so samuel and you have such a beautiful baby that then lead client to exhibit negative thinking patterns. Client reports having thoughts like I'm a failure I'm always going to feel this way this is unfair which then induce anxiety spiraling. Client and this worker discussed thought stropping and replacing unhelpful thoughts. Client able to come up with thoughts to combat negative thinking patterns which included: I can do hard things I am hopeful I have seen progress I am strong. Client expressed commitment to utilizing skills on a consistent basis. Client reported at end of session her anxiety is still really high but is feeling more hopeful and really interested in group topic of fear of failure today in program. Risks/Concerns:: Denies suicidal ideation, plan, or intention to date. future oriented. Progress Toward Goals/Plan:: Client reported consistent use of skills learned in treatment. Client experiencing high anxiety, but reports increase feelings of hopefulness dedication to treatment. Did well to work with therapist to identify and replace thoughts that contribute to increased anxiety and panic. Plan is for client to continue IOP to improve daily functioning, increase mood stability, and prevent decompensation. Time Stopped:: 09:45
--- NOTE | 2025-09-28 09:00 | BH.SGPN.GN ---
Behaviors/Verbalizations/Mental Status: [] Pt alert and oriented, Casually dressed and groomed. Eye contact good. Motor activity appropriate. Speech within normal limits. Affect congruent, mood calm. Thoughts linear, logical, no signs of hallucinations or delusions. Reviewed pt?s symptom tracker today, denies suicidal ideation, plan, and intent.09/28/25 Client Response/Progress/Benefit: []Pt was an active participant in group discussions. Attentive. Per patients daily symptom tracker, pt indicates a 2/5 for depression and a 3/5 for anxiety, with 5 being severe. Pt's mental health positive was not having intense anxiety the pervious day, stating that she did not feel anxious for about 75% of her day. Pt stated that she is unsure why she did not feel anxious, but that it was a good day. Pt's other mental health win was going out to dinner with a couple from a parenting support group. Pt reported that it was nice to have connection with others who have been in similar situations. Pt's stressor was her anxiety. Pt stated that she is so anxious that she throws up almost everything that she eats. Pt was supportive and attentive to others in the group. Pt seemed to benefit from support from peers. Will continue IOP tx to promote healthy coping mechanisms, decrease negative thinking patterns, and prevent decompensation.
--- NOTE | 2025-09-28 10:10 | BH.SGPN.GN ---
Behaviors/Verbalizations/Mental Status: [] Pt alert and oriented, casually dressed and groomed. Eye contact fair. Motor activity appropriate. Speech within normal limits. Affect full , mood anxious, Thoughts linear, logical, no signs of hallucinations or delusions. Client Response/Progress/Benefit: [] Pt participated in group discussion. Group worked together to identify benefits of healthy relationships which included improves mental health, encouragement, motivation, accountability, validation, connection, someone to share experiences with, and support during challenges. Group identified factors that lead to unhealthy relationships which included trauma, lack of communication, and substance use. Benefited from increased insight and awareness of benefits of healthy relationships and factors that contribute to unhealthy relationships. Will continue in IOP to increase consistent use of healthy coping skills, challenge negative thoughts, and prevent decompensation. Narrative Note: []
--- NOTE | 2025-09-28 10:37 | PCM.BH.PN ---
Intake Vital Signs 09/07/25 11:23 09/14/25 07:52 09/28/25 10:38 Height 5 ft 7 in 5 ft 7 in 5 ft 7 in Weight: 315 lb BP 145/83 H Pulse 66 Intake Visit Reasons: Depression Allergies Penicillins Adverse Reaction (Verified 09/07/25 11:06) PT UNSURE OF REACTION quinidine Adverse Reaction (Verified 09/07/25 11:06) tachycardia Medications ?Medication ?Instructions ?Recorded ?Confirmed ?Type amlodipine 10 mg tablet (Norvasc) 10 mg PO DAILY 30 days #30 tabs 09/14/25 Rx clonidine HCl 0.1 mg tablet 0.1 mg PO TID 30 days #90 tabs 09/14/25 Rx hydroxyzine pamoate 50 mg capsule 50 mg PO BID PRN anxiety #60 caps 09/14/25 Rx lurasidone 40 mg tablet (Latuda) 40 mg PO DAILY 30 days #30 tabs 09/14/25 Rx quetiapine 100 mg tablet (Seroquel) 100 mg PO QHS 30 days #30 tabs 09/14/25 Rx sertraline 100 mg tablet (Zoloft) 150 mg (1.5 x 100 mg) PO DAILY 90 09/25/25 Rx days #135 tabs ondansetron HCl 4 mg tablet 4 mg PO Q8H PRN nausea and 09/28/25 Rx vomiting #15 tabs trazodone 50 mg tablet 50 mg PO QHS #30 tabs 09/28/25 Rx zuranolone 25 mg capsule 50 mg (2 x 25 mg) PO QDAY 14 days 09/28/25 Rx #28 caps HPI () History of Present Illness History provided by: patient Chief complaint: Worsened anxiety HPI: Kristi Ca is a 29 year old female who presents today follow up evaluation. Admits that anxiety has been much worse since last appointment. Feels significant rushes of anxiety. Has not been able to eat and has been throwing up after dinner nearly every night. Feels like lurasidone has not been extremely effective to this point. Admits to somewhat regular depression. Admits to some passive thoughts of suicide. Denies any intent. Has not started her period despite having had since giving previously. Has not taken a test. Admits to having strong support system at home. has been caring for baby throughout the night. Denies any HI or AVH. Review of systems () Constitutional Denies: fever(s), chills, change in weight or fatigue Eyes Denies: change in vision or blurry vision Ears, Nose, Mouth, Throat Denies: throat pain, neck pain or change in hearing Cardiovascular Denies: chest pain, palpitations or dyspnea Respiratory Denies: dyspnea, cough or wheezing Gastrointestinal Reports: nausea and vomiting; Denies: abdominal pain, diarrhea or constipation Genitourinary Denies: dysuria or urinary frequency Musculoskeletal Denies: back pain, neck pain, joint pain or muscle weakness Integumentary/Breast Denies: rash or new lesions Neurological Denies: headache(s), dizziness or confusion Endocrine Denies: fatigue or excessive sweating Hematologic/Lymphatic Denies: easy bruising or easy bleeding Allergic/Immunologic Denies: wheezing Exam Mental Status Exam- Psych () Appearance casually dressed, adequately groomed and obese Attitude cooperative Activity/Motor Behavior limited eye contact Speech regular rate Mood depressed and anxious Affect labile (Tearful) Thought Process linear and logical Thought Content no delusions and no hallucinations Suicidal Ideation passive Homicidal Ideation none Attention intact Concentration intact Sensorium/Orientation awake and alert Memory/Cognition intact Insight fair Judgement fair Assessment & Plan () Assessment & Plan (1) Major depressive disorder, single episode, severe with peripartum onset: Plan: - Will start Zuranolone 50 mg every day for 14 days ? Advised the risk benefits and possible side effects of medication including but not limited to sedation and disorientation. Encouraged to have family help support take care of baby while she takes medication which she is agreeable to and able to do ? Continue other medications as previously prescribed Charges/Coding Behavior Health Behavior Health EST Pt E/M: 03404 Est Pt Level IV
--- NOTE | 2025-09-28 11:10 | BH.SGPN.GN ---
Behaviors/Verbalizations/Mental Status: [] Pt alert and oriented, casually dressed and groomed. Eye contact fair. Motor activity appropriate. Speech within normal limits. Affect full , mood anxious, Thoughts linear, logical, no signs of hallucinations or delusions. Client Response/Progress/Benefit: [] Client responded well to session, engaged and taking notes throughout. Worked with group to connect components of the experiential activity with characteristics of healthy and unhealthy relationships. Attentive during psychoeducation about characteristics of healthy, unhealthy, and abusive relationships. Group member picked unhealthy and healthy attributes of an important relationship in their lives. Client reported they would like to continue to improve time spent together and apart in their chosen relationship. Appeared to benefit from identifying current healthy relationship attributes and an area client wants to work on to build healthier relationships. Client to continue IOP to increase healthy coping skills, stabilize mood, and prevent decompensation. Narrative Note: []
--- NOTE | 2025-10-01 09:00 | BH.SGPN.GN ---
Behaviors/Verbalizations/Mental Status: [] Client alert and oriented, casually dressed and groomed. Eye contact good. Motor activity appropriate. Speech within normal limits. Affect constricted, mood euthymic. Thoughts linear, logical, no signs of hallucinations or delusions. Reviewed client?s symptom tracker, no risk for suicidal ideation, plan, or intent as of 10/01/25 Client Response/Progress/Benefit: [] Client responded well to group by actively participating throughout group. Reported that their emotion today was hopeful.Client shared her wins which included hanging out with friends that have young children and finding herself able to enjoy her time with them. Client saw it beneficial to see their kids which are older than her daughter interact which invoked hope in her. Client went on to share her stressor which included when leaving IOP she does not have much to do which leads her to sit and stew with thoughts, Client receptive to suggestions from group members on volunteering opportunities. Client seemed to benefit from feedback from group members and gave a lot of input to others. They will continue IOP tx to increase coping skills, prevent decompensation, and increase overall functioning. Narrative Note: []
--- NOTE | 2025-10-01 10:10 | BH.SGPN.GN ---
Behaviors/Verbalizations/Mental Status: [] Pt alert and oriented, casual appearance, eye contact good. Motor activity appropriate. Speech within normal limits. Affect congruent. Mood slightly anxious. Thoughts linear, logical, no signs of hallucinations or delusions. Client Response/Progress/Benefit: [] Pt was an active participant in group discussions on defining conflict (internal/external) and possible benefits to conflict. Attentive during psychoeducation on conflict styles (avoidant, accommodating, competing, cooperative) and engaged during group discussion in which the group identified when it is beneficial to use conflict styles and pitfalls of each conflict style. Pt noted they connect most with avoidant style of conflict. Pt was an able to connect the impact current style of conflict has on functioning. Benefited from increased awareness of the impact of conflict styles on mental health. Will continue in IOP to reinforce healthy coping skills, continue working on fear ladders, and prevent decompensation.
--- NOTE | 2025-10-01 11:10 | BH.SGPN.GN ---
Behaviors/Verbalizations/Mental Status: []Client alert and oriented, casually dressed and groomed. Eye contact good. Motor activity appropriate. Speech within normal limits. Affect congruent, mood engaged. Thoughts linear, logical, no signs of hallucinations or delusions. Client Response/Progress/Benefit: [] Pt engaged in session AEB contributing to discussion and engaging in small group. Attentive during discussion on strategies for more effectively managing conflict in personal life. Pt noted current conflict resolution style uses the most is accommodating because doesn't want to cause any issues. Pt participated in small group for activity and did well practicing how to manage conflict scenarios. Pt given handout on fair fighting rules and how to identify common conflict barriers. Pt indicated what needs improvement in conflict for them- focusing on one topic at a time. Appeared to benefit from gaining strategies to help pt better manage conflict. Will continue IOP tx promote mood stability, reduce negative thinking patterns, and improve daily functioning. ? Narrative Note: []
--- NOTE | 2025-10-02 09:05 | BH.SGPN.GN ---
Behaviors/Verbalizations/Mental Status: [] Eye contact is good. Motor activity is appropriate. Appearance is casual. Speech is Appropriate. Mood is dysthymic. Affect is congruent. Thoughts are linear and logical. No evidence of psychosis. Reviewed daily check in sheet and no reports of suicidal ideations. Client Response/Progress/Benefit: [] Pt participated at times during the group discussions. Attentive. Able to identify mental health wins as ? holding the baby by myself for over an hour?. She also discussed a recent situation in which she advocated for herself. Overall reports feeling ?stressed out?. Limited progress noted. Benefited from group support, encouragement, and feedback. Will continue in IOP to maintain safety, prevent decompensation, and increase healthy coping to return to work. Narrative Note: []
--- NOTE | 2025-10-02 10:15 | BH.SGPN.GN ---
Behaviors/Verbalizations/Mental Status: []Pt alert and oriented, casually dressed and groomed. Eye contact good. Motor activity appropriate. Speech within normal limits. Affect constricted, mood anxious. Thoughts linear, logical, no signs of hallucinations or delusions. Client Response/Progress/Benefit: [] Pt engaged in session AEB client listening attentively to peers and providing input. Attentive and contributed to discussion as group worked on defining self-forgiveness and identifying mental health benefit. Identified benefits as: reduce guilt/shame, increase self-confidence, decrease negative self-talk, healthier relationships, ect. ?Worked in small groups to identify factors that can make self-forgiveness difficult. Pt identified a personal barrier to self-forgiveness including shame and guilt. Benefited from increased education on self-forgiveness, benefits, and what effects it. Pt will continue IOP tx to promote mood stability, increase distress tolerance, and increase self-confidence. ? Narrative Note: []
--- NOTE | 2025-10-02 11:15 | BH.SGPN.GN ---
Behaviors/Verbalizations/Mental Status: [] Client alert and oriented, casually dressed and groomed. Eye contact good. Motor activity appropriate. Speech within normal limits. Affect congruent, mood anxious and depressed. Thoughts linear, logical, no signs of hallucinations or delusions. Client Response/Progress/Benefit: [] Pt engaged in session AEB client listening attentively to peers and providing input. Attentive during psychoeducation on the 4 R?s of Self-Forgiveness (Responsibility, Remorse, Sikhism, Renewal). Contributed to discussion as group worked on identifying strategies for improving ability to practice self-forgiveness. Reports wanting to practice thought challenging and self-compassion. Engaged in self-forgiveness activity and benefited from increased education on self-forgiveness building skills. Pt will continue IOP tx to improve mood stability, increase self-compassion, and prevent decompensation. Narrative Note: []
--- NOTE | 2025-10-03 10:10 | BH.SGPN.GN ---
Behaviors/Verbalizations/Mental Status: [] Eye contact is good. Motor activity is appropriate. Appearance is casual. Speech is Appropriate. Mood is dysthymic. Affect is congruent. Thoughts are linear and logical. No evidence of psychosis. Client Response/Progress/Benefit: [] Pt responded well to session, attentive and engaged. Group participated in the discussion defining stigma as well as the stigma associated with mental health. Interactive discussion on common themes associated with mental health stigma which included being crazy, dramatic, lazy, attention-seeking, fake, broken, weak, or stupid. Pt worked with peers to begin discussion of what reinforces stigma, both socially and internally, and this was discussed further in the next group. Pt appeared to benefit from learning about the different types of stigma as well as gaining awareness of how stigma has personally impacted pt. Will continue in IOP to prevent decompensation/re-admission to psych unit, increase healthy coping, and improve functioning. Narrative Note: []
--- NOTE | 2025-10-03 11:10 | BH.SGPN.GN ---
Behaviors/Verbalizations/Mental Status: []Pt alert and oriented, casually dressed and groomed. Eye contact fair. Motor activity appropriate. Speech within normal limits. Affect congruent, mood anxious. Thoughts linear, logical, no signs of hallucinations or delusions. Client Response/Progress/Benefit: [] Pt engaged participant AEB participating in the activity, providing input during small group discussion, and listening attentively to others. Pt appeared to connect with discussion in the benefits of addressing mental health stigma which included: improved relationships, increased willingness to seek help, increased happiness, and improved confidence. Group brainstormed strategies to combat social and perceived stigma. Pt shared one thing pt can do to combat stigma is to limit negative self-talk and open up to other people. Appeared to benefit from increasing awareness of strategies to combat stigma. Pt is to continue IOP to continue working on fear ladder, improve healthy coping skills, and prevent decompensation.
== END 2025-10-07 23:59 ==
LOC: BHIOP 08:00
PROVIDERS: Referring Provider Student in an Organized Health Care Education/Training Program; Visit Provider Student in an Organized Health Care Education/Training Program
DX: F53.0 Postpartum depression (principal)
CPT/HCPCS: S9480; 90832; 90837; 90853

== ENCOUNTER → 2025-09-28 | Outpatient (CLI) | payer BC, SELFPAY ==
[2025-09-28 13:17] LABS: Internal QC Validated? YES +Cl - CLEAR BKGD; Pregnancy, Urine Negative Negative; Record Kit Lot#,Urine Preg 980607
== END | disposition home or self-care (01) ==
LOC: LAB 12:22
PROVIDERS: Referring Provider Student in an Organized Health Care Education/Training Program; Visit Provider Student in an Organized Health Care Education/Training Program
DX: F32.2 Major depressive disorder, single episode, severe without psychotic features (principal)
CPT/HCPCS: 81025

== ENCOUNTER 2025-10-08 08:05 | Outpatient (RCR) | payer BC, SELFPAY ==
--- NOTE | 2025-10-08 09:00 | BH.SGPN.GN ---
Behaviors/Verbalizations/Mental Status: [] Eye contact is good. Motor activity is appropriate. Appearance is casual. Speech is Appropriate. Mood is anxious. Affect is congruent. Thoughts are linear and logical. No evidence of psychosis. Reviewed daily check in sheet and no reports of suicidal ideations Client Response/Progress/Benefit: [] Pt participated at times during the group discussions. Attentive. She was nervous about being ?away? from IOP for 6 days due to the holiday. Fearful that she would decompensation. She was able to utilize skills noting ? not a lot of panic?. She was engaged with family and spend some time in a social situation w/o significant anxiety. ? I survived?. Feels ?optimistic?. ? I rebuilding my confidence?. Progress noted. Benefited from group support, encouragement, and feedback. Will continue in [facility] to prevent decompensation, stabilize mood, and improve functioning to return to work. Narrative Note: []
--- NOTE | 2025-10-08 10:10 | BH.SGPN.GN ---
Behaviors/Verbalizations/Mental Status: []Pt alert and oriented, casual appearance. Eye contact good. Motor activity appropriate. Speech within normal limits. Affect congruent, mood euthymic. Thoughts linear, logical, no signs of hallucinations or delusions. Client Response/Progress/Benefit: [] Pt responded well to session AEB sharing and listening attentively to others. Group provided examples of types of support (professional, pets, hobbies, community, spouse, chaparrita, etc) as well as benefits of having social support, including: validation, get perspective, and accountability. Pt also participated in group discussion regarding the barriers to accessing support. Pt identified positive supports to include: , family, friends, medication, therapy, books, and restorationism. Pt participated in experiential activity illustrating the impact communication, boundaries, and patience play in creating healthy support systems. Pt appeared to benefit from increased knowledge of the benefits of social support and greater self-awareness. Pt to continue IOP to promote use of anxiety reduction skills, continue working on fear ladders, and prevent decompensation.
--- NOTE | 2025-10-08 15:31 | BH.MDN_ITS ---
Multi-Disciplinary Note Note 30-min Individual: Time Started:: 11:20 Date: 10/08/25 Purpose of session/treatment goals addressed:: Purpose of session was to address goals 1 and 2 from MTP. Eye Contact:: Good Motor Activity:: Appropriate Appearance:: Casual Speech:: Appropriate Mood:: Euthymic Affect:: Full Thoughts:: Linear, Logical and No evidence of hallucinations/delusions noted Staff Interventions:: CBT techniques, strengths perspective, goal setting and other (reinforcement of skills) Client Response:: Client reported she had a really good weekend. Client reported she did have some anxiety on night but was able to work t hrough it and overall had a successful holiday. Client stated she has been working on her fear ladder to decrease anxious avoidance and caretaking of her daughter. Client noted significant progress with being able to take care of her baby for 4 hours on her own. Client stated she was anxious for a little bit when her daughter started to cry but was able to work through the anxiety and the time together went really well. Client for this is the second time that she has been able to independently care for her daughter for multiple hours in a row. Client noted additional progress with starting to feel more like herself. Client reported she went with her to a friend's house and they left their child with client's mother. Client stated she was able to be more present and enjoyed her time being social with others. Client reported she has been able to eat without getting sick, improved sleep with decreased anxious thoughts around sleep, and continuing to work her fear ladder. Client stated she feels confident with how the program and her treatment is going. Client reported she wants to just focus on continuing to work on her fear ladder and increase her confidence. Client stated she starts with a new individual therapist for outpatient counseling tomorrow and is hopeful this will be a better fit than her first 1. Risks/Concerns:: Denies suicide ideation, plan, intention. Future oriented. Progress Toward Goals/Plan:: Progress note of client reporting increased ability to independently care for her daughter over the weekend for 4 hours on her own which is the longest she has done in a long time. Client stated she had moments in which she felt anxious especially when her daughter was crying but was able to utilize calming skills to help manage her emotions and is really happy with how her weekend went. Client noted starting to feel like myself. Client stated she wants to continue to focus on working her fear ladder to decrease anxious avoidance. Client stated for the first time since her daughter was born her and client went to a friend's house while client's mom took care of their daughter. Client reported she was able to maintain being in the moment and really enjoyed herself. Plan is for client to continue IOP to reinforce healthy coping skills, continue working on fear ladder, and prevent decompensation. Client starts outpatient counseling with a new counselor tomorrow and will focus on trauma based counseling about her traumatic . Time Stopped:: 11:45
--- NOTE | 2025-10-10 09:00 | BH.SGPN.GN ---
Behaviors/Verbalizations/Mental Status: [] Pt alert and oriented, Casually dressed and groomed. Eye contact good. Motor activity appropriate. Speech within normal limits. Affect congruent, mood calm. Thoughts linear, logical, no signs of hallucinations or delusions. Reviewed pt?s symptom tracker today, denies suicidal ideation, plan, and intent.10/10/25 Client Response/Progress/Benefit: []Pt was an active participant in group discussions. Attentive. Per patients daily symptom tracker, pt indicates a 1/5 for depression and a 2/5 for anxiety, with 5 being severe. Pt's first mental health positive was volunteering as a way to get out of the house. Pt stated that she initially did not want to go, but felt staying home would be worse for her mental health. Pt's second mental health positive was starting sessions with a new outpatient therapist. Pt stated that her previous therapist crossed many ethical boundaries and engaged in triggering behavior. Pt let the practice know about this and is now seeing a new therapist whom she trusts. Pt's stressor was having a final interview for a job that would allow her and her to stay in [place], which is what Pt wants. If pt does not get this position, her family will move back to [place]. Pt stated that she was feeling cautiously optimistic about her future. Pt was supportive and attentive to others in the group. Pt seemed to benefit from support from peers. Will continue IOP tx to promote healthy coping mechanisms, decrease negative thinking patterns, and prevent decompensation.
--- NOTE | 2025-10-10 10:10 | BH.SGPN.GN ---
Behaviors/Verbalizations/Mental Status: [] Eye contact is good. Motor activity is appropriate. Appearance is casual. Speech is Appropriate. Mood is euthymic. Affect is congruent. Thoughts are linear and logical. No evidence of psychosis. Client Response/Progress/Benefit: [] Pt was an active participant and responded well to session AEB input and examples during group activity. Group discussed and practiced methods of reframing cognitive distortions. Client participated in identifying cognitive distortions when examples were provided. Client discussed in group the different strategies to overcome the distortions. Client identified cognitive distortion they used most often and made plan to identify and challenge thoughts that contribute to it as homework over the next couple of days. Will continue tx to promote healthy coping skills continue working on anxiety reduction skills, and prevent decompensation.
--- NOTE | 2025-10-10 11:10 | BH.SGPN.GN ---
Behaviors/Verbalizations/Mental Status: []Eye contact is good. Motor activity is appropriate. Appearance is casual. Speech is Appropriate. Mood is hopeful. Affect is congruent. Thoughts are linear and logical. No evidence of psychosis. Client Response/Progress/Benefit: [] Pt was an active participant and responded well to session AEB input and examples during group activity. Group discussed and practiced methods of reframing cognitive distortions. Pt participated in identifying cognitive distortions when examples were provided. Pt discussed in group the different strategies to overcome the distortions. Pt identified cognitive distortion they use most often which is shoulds and pt reports plan to continue working on reframing these thoughts. Pt did well in small group during experiential activity and helped group identify answers. Will continue IOP tx to promote mood stability, further combat distortions, and increase self-confidence. ? Narrative Note: []
--- NOTE | 2025-10-12 09:00 | BH.SGPN.GN ---
Behaviors/Verbalizations/Mental Status: [] Pt alert and oriented, Casually dressed and groomed. Eye contact good. Motor activity appropriate. Speech within normal limits. Affect congruent, mood calm. Thoughts linear, logical, no signs of hallucinations or delusions. Reviewed pt?s symptom tracker today, denies suicidal ideation, plan, and intent.10/12/25 Client Response/Progress/Benefit: []Pt was an active participant in group discussions. Attentive. Per patients daily symptom tracker, pt indicates a 2/5 for depression and a 2/5 for anxiety, with 5 being severe. Pt's first mental health positive was holding and comforting her while she was having a fit despite this being a triggering situation. Pt stated that she wanted to prove to herself that she is able to comfort her baby without having to get help from her or mother. Pt's other mental health win was reframing her anxious thoughts when home alone. Pt reported feeling very anxious when she does not have plans to leave the house, but was able to reframe the situation as having an opportunity to do something fun. Pt scheduled lunch with her dad to combat anxiety of being home alone. Pt was supportive and attentive to others in the group. Pt seemed to benefit from support from peers. Will continue IOP tx to promote healthy coping mechanisms, decrease negative thinking patterns, and prevent decompensation.
--- NOTE | 2025-10-12 10:15 | BH.SGPN.GN ---
Behaviors/Verbalizations/Mental Status: [] Eye contact is good. Motor activity is appropriate. Appearance is casual. Speech is Appropriate. Mood is euthymic. Affect is congruent. Thoughts are linear and logical. No evidence of psychosis. Client Response/Progress/Benefit: [] Client was an active participant during interactive group discussions. Attentive during psychoeducation on the six types of boundaries (physical, emotional, intellectual, sexual, time, and material). Along with peers contributed to interactive discussion on defining what a boundary is in mental health. Client along with peers identified challenges to setting boundaries which included; fear of other's response, guilt, fear of rejection, fear of disappointing the other person, feeling like one is unworthy to set boundaries, etc. Client along with peers identified the benefits to setting boundaries such as increased confidence, decreased stress, increased time for self-care, and better quality of life. Group discussed the mental health benefits to establishing boundaries at work, school, and home. Client benefited from increased awareness and insight on the importance/benefit to setting health boundaries. Will continue in IOP to prevent decompensation, increase self care, and improve functioning. Narrative Note: []
--- NOTE | 2025-10-12 11:15 | BH.SGPN.GN ---
Behaviors/Verbalizations/Mental Status: [] Eye contact is good. Motor activity is appropriate. Appearance is casual. Speech is Appropriate. Mood is euthymic. Affect is congruent. Thoughts are linear and logical. No evidence of psychosis. Client Response/Progress/Benefit: [] Client responded well to session AEB listening attentively to peers, providing input, as well as taking notes throughout. Participated in group discussion brainstorming various strategies for improving healthy boundary setting. Client reports wanting to begin using skill of finding ways to start putting boundaries down to improve overall ability to establish and maintain healthy boundaries. Seemed to benefit from increased awareness of how different boundary styles can impact mental health. Will continue IOP tx to increase consistent application of skills, increase self-care and anxiety management, and prevent decompensation. Narrative Note: []
--- NOTE | 2025-10-16 09:05 | BH.SGPN.GN ---
Behaviors/Verbalizations/Mental Status: [] Eye contact is good. Motor activity is appropriate. Appearance is casual. Speech is Appropriate. Mood is euthymic. Affect is full. Thoughts are linear and logical. No evidence of psychosis. Reviewed daily check in sheet and no reports of suicidal ideations Client Response/Progress/Benefit: [] Pt was an active participant in group discussions. Attentive. I've been spending more time with my baby. Goals to get more comfortable and confident around baby. She identified upcoming stressors which are both excited and overwhelming. Brief check-in however reports overall feeling optimistic. Progress noted. Benefited from group support, encouragement, and feedback. Will continue in IOP to prevent decompensation, stablize mood, and improve functioning to return to work. Narrative Note: []
--- NOTE | 2025-10-16 10:00 | BH.SGPN.GN ---
Behaviors/Verbalizations/Mental Status: [] Eye contact good. Motor activity appropriate. Appearance casual. Speech is appropriate. Mood is calm. Affect is congruent. Thoughts are linear and logical. no evidence of psychosis. Client Response/Progress/Benefit: []Pt was engaged and active participant in group discussion. Engaged an attentive during psychoeducation and interactive discussion on coping skills. why people use unhealthy coping skills. How to replace unhealthy coping skills, internal vs external coping skills. Attentive as peers came up with list of unhealthy coping skills. Pt reported personally that she turns to shutting down as an unhealthy coping skill. Group discussed the effects of maladaptive coping skills on mental health. Benefited from increased understanding of unhealthy coping skills and the need for developing healthy internal and external coping skills. Actively participated during experiential group activity and was able to relate activity to group topic. Will continue IOP to promote healthy coping skills, decrease negative thinking patterns, and prevent decompensation.
--- NOTE | 2025-10-16 11:10 | BH.SGPN.GN ---
Behaviors/Verbalizations/Mental Status: [] Client alert and oriented, casually dressed and groomed. Eye contact fair to good. Motor activity appropriate. Speech within normal limits. Affect congruent, mood euthymic. Thoughts linear, logical, no signs of hallucinations or delusions. Client Response/Progress/Benefit: [] Client responded well to session AEB taking notes and providing input and examples throughout. Group discussed the different categories of coping skills which included distraction, emotional release, grounding, self-love, and access to greater self, and thought challenging. Client created a coping skill menu identifying various skills to try in each category. Client?s coping skill menu included: crafting, journaling, TIPP, writing things you like about yourself, and identifying cognitive distortions. Appeared to benefit from increasing repertoire of healthy coping skills. Client will continue IOP tx to challenging distorted thoughts, increase consistent healthy coping skills, and prevent decompensation.
--- NOTE | 2025-10-18 09:05 | BH.SGPN.GN ---
Behaviors/Verbalizations/Mental Status: [] Eye contact is good. Motor activity is appropriate. Appearance is casual. Speech is Appropriate. Mood is anxious. Affect is congruent. Thoughts are linear and logical. No evidence of psychosis. Reviewed daily check in sheet and no reports of suicidal ideations Client Response/Progress/Benefit: [] Pt was an active participant in group discussions. Attentive. Shared with the group ? I had a lot of anxiety yesterday?. Shared triggers to anxiety it was a lot?. Overwhelmed and overstimulated. She reports progress however continues to struggle. Limited progress noted. Benefited from group support, encouragement, and feedback. Will continue in IOP to maintain safety, prevent decompensation, increase healthy coping, and improve functioning to return to work. Narrative Note: []
--- NOTE | 2025-10-18 10:10 | BH.SGPN.GN ---
Behaviors/Verbalizations/Mental Status: [] Client alert and oriented, casually dressed and groomed. Eye contact fair. Motor activity appropriate. Speech within normal limits. Affect congruent, mood euthymic. Thoughts linear, logical, no signs of hallucinations or delusions. Client Response/Progress/Benefit: [] Client responded well to session, attentive during psychoeducation on SMART goals (Specific, Measurable, Achievable, Realistic, and Time-bound) and engaged in group experiential activity. Participated in an interactive discussion with peers in which they worked together to define what a goal is and the benefits of having goals. Group identified benefits as; helps MH, improves motivation, improves confidence, and personal growth. Participated in interactive discussion in which group identified barriers to setting goals and following through with goals. Group barriers included health, lack of supports, making excuses, and avoidance. Benefited from increased awareness of benefits and strategies for goal-setting. Will continue in IOP tx to continue working on fear ladders, improve confidence, and prevent decompensation.
--- NOTE | 2025-10-18 11:10 | BH.SGPN.GN ---
Behaviors/Verbalizations/Mental Status: []Pt alert and oriented, neatly dressed and groomed. Eye contact good. Motor activity appropriate. Speech within normal limits. Affect congruent, mood content. Thoughts linear, logical, no signs of hallucinations or delusions Client Response/Progress/Benefit: [] Pt was engaged during discussion and willing to complete the worksheet challenging them to develop a personal SMART goal. Pt chose the goal of spending 30 minutes alone with her daughter 4x this week. Pt identified anxiety as barriers. Identified solutions such as reminding herself how relieved she will feel and grounding skills. Pt receptive to identifying solutions for these barriers and willing to begin working on this goal. Benefited from this group by developing a short-term SMART goal related to mental health. Will continue IOP tx to prevent decompensation, improve daily functioning, and increase mood stability. ? Narrative Note: []
--- NOTE | 2025-10-19 11:10 | BH.SGPN.GN ---
Behaviors/Verbalizations/Mental Status: []Eye contact is good. Motor activity is appropriate. Appearance is casual. Speech is Appropriate. Mood is euthymic. Affect is congruent. Thoughts are linear and logical. No evidence of psychosis. Client Response/Progress/Benefit: [] Pt was an attentive participant in group discussions and actively engaged during experiential activity. Participated with peers on identifying the connection between the experiential activity and utilization of stress management skills. Attentive during psychoeducation on the 4 A's (Avoid, adapt, alter, accept) of coping with stress. Pt engaged in self-reflection activity in which they identified one of the 4 A's to address one their top stressors. Benefited from increased awareness of stress management strategies. Pt will continue IOP to promote mood stability, increase consistent use of healthy coping skills, and prevent decompensation.
--- NOTE | 2025-10-19 15:22 | BH.MDN ---
Multi-Disciplinary Note Note 30-min Individual: Time Started:: 09:30 Date: 10/19/25 Purpose of session/treatment goals addressed:: Purpose of session was to address goals 1 and 2 from MTP. Eye Contact:: Good Motor Activity:: Appropriate Appearance:: Casual Speech:: Appropriate Mood:: Euthymic and Anxious Affect:: Congruent Thoughts:: Linear, Logical and No evidence of hallucinations/delusions noted Staff Interventions:: thought challenging, CBT techniques, discharge planning, strengths perspective and taught coping skills Client Response:: Client reported overall she has been doing better but the last couple days have been rough. Client elaborated that over the last couple days her baby has started to prefer being with her over being with client. Client stated she finds this to be extremely sad because client is starting to finally feel more connected with her baby and now her baby is wanting to be with client's . Client reported she is trying to not take this personally but has been having to challenge a lot of her negative thoughts that because she struggled with attachment early on it is her fault that her baby does not want to be with her as much. Client stated the other day she was with her baby while her went to the store and her baby cried and screamed for 45 minutes straight. Client noted as soon as her got home her baby was able to calm down. Client stated although this was incredibly frustrating and upsetting she is able to see that there is progress and the fact that client was able to successfully manage trying to soothe and help her baby while her baby was extremely upset. Client noted that this had happened a few weeks ago she would have had an extreme difficulty with being able to care for her baby without the help of somebody else. Client reported she has been continuing to work on her fear ladders of not engaging in avoidance of taking care of her child on her own and has been able to be alone with significantly decreased anxiety. Client stated she will have ups and downs in which there is moments that she has more anxiety but is able to recognize it and trying to utilize healthy coping skills to keep the anxiety manageable. Client receptive to thought challenge about her baby's current desire to being around her more. Client stated her plan is to continue working on anxiety fear ladders to build confidence and sustain the progress that she has made thus far with improved daily functioning and decreased anxious avoidance. Risks/Concerns:: Denies suicidal ideation, plan, intention. Future oriented. Progress Toward Goals/Plan:: Progress noted with client reporting continued success with working on decreasing avoidance of anxiety provoking situations. Client over the last couple weeks has been able to independently care for her child without the support of somebody else. Client recently independently took care of her daughter while her daughter was crying and screaming which has been a significant trigger of anxiety for client over the last couple months. Client does report recent increase in anxiety and depressed thoughts over the last couple days since her daughter has been wanting to be around client's and often is more likely to cry when only with client. Client receptive to thought challenge and will continue to focus on maintaining progress with decreasing anxious avoidance. Started discussion about tentative discharge from IOP to be 11/02/25. Client stated she would like to continue to have the support of the program during holidays and reinforcement of healthy coping skills because in the last week she is starting to feel more like myself. Plan is for client to continue IOP to maintain gains, challenges or thought patterns, and prevent decompensation. Time Stopped:: 09:50
--- NOTE | 2025-10-23 10:10 | BH.SGPN.GN ---
Behaviors/Verbalizations/Mental Status: [] Eye contact is good. Motor activity is appropriate. Appearance is casual. Speech is Appropriate. Mood is euthymic. Affect is full. Thoughts are linear and logical. No evidence of psychosis. Client Response/Progress/Benefit: [] Pt was engaged and participating throughout, providing input and taking notes. Attentive during psychoeducation on anxiety and cognitive triangle. Participated in an interactive discussion on defining anxiety and identifying cognitive and physiological symptoms of anxiety. The group discussed helpful vs harmful anxiety. Pt along with peers worked together to identify common physical/physiological signs of anxiety which included: increase heart rate, stomach ache, dry mouth, numbness/tingling, shakiness, crying, sweating, etc. Pt identified personal physiological warning signs as stomach ache and restlessness. Benefited from increased awareness and insight on anxiety and its impact. Will continue in IOP to prevent decompensation, stabilize mood, and improve functioning to return to work. Narrative Note: []
--- NOTE | 2025-10-23 11:10 | BH.SGPN.GN ---
Behaviors/Verbalizations/Mental Status: []Eye contact is fair. Motor activity is appropriate. Appearance is appropriate. Speech is Appropriate. Mood is anxious and hopeful. Affect is congruent. Thoughts are linear and logical. No evidence of psychosis. Client Response/Progress/Benefit: [] Pt was an active participant AEB pt providing input and listening attentively to peers. Attentive during psychoeducation on mindfulness coping skills, body-based coping skills, and mind-based coping skills and their impact on reducing anxiety and improving overall mental health wellness. Group was able to identify self-soothing and mind-based coping skills which included: PMR, deep breathing, opposite action DDD, and meditation. Pt verbalized skill to make effort to use this week as: continuing to work on her fear ladder and to ?level the playing field.? Pt will continue IOP to further reduce anxiety, improve distress tolerance skills, and combat distortions. Narrative Note: []
--- NOTE | 2025-10-25 10:05 | BH.SGPN.GN ---
Behaviors/Verbalizations/Mental Status: []Eye contact is good. Motor activity is appropriate. Appearance is casual. Speech is Appropriate. Mood is agitated and focused. Affect is congruent. Thoughts are linear and logical. No evidence of psychosis. Client Response/Progress/Benefit: [] Pt receptive to session AEB listening attentively to others and taking notes. Pt attentive and contributed throughout psychoeducation on the cognitive triangle and maintenance cycles. Pt engaged during group discussion reviewing the impact of daily activities and behaviors in either reinforcing unhealthy maintenance cycles and depression or assisting in reducing symptoms (?down? vs ?up? activities). Pt participated during interactive discussion in which the group identified their own common up activities (quilting, listening to music, reading, and calling relatives, etc) and down activities (not eating, avoiding people, and ignoring hygiene.) Appeared to benefit from increased awareness of current behaviors and impact these have on mental health. Will continue IOP tx to promote mood stability, increase self-confidence, and reinforce healthy coping skills. ?? Narrative Note: []
--- NOTE | 2025-10-25 11:10 | BH.SGPN.GN ---
Behaviors/Verbalizations/Mental Status: [] Eye contact is good. Motor activity is appropriate. Appearance is casual. Speech is Appropriate. Mood is euthymic. Affect is full. Thoughts are linear and logical. No evidence of psychosis. Client Response/Progress/Benefit: [] Pt responded well to session, attentive and engaged in group discussions and activity. Actively engaged in continued discussion about up activities and down activities. Active participant as group discussed values and the benefits that knowing one's values can have on one's mental health. Client shared an up activity they could practice today which was calling and speaking to family. Benefited from increased awareness of their up activities and how incorporating their values into behavioral activation goals can positively impact mental health. Will continue in IOP to prevent decompensation/re-admission, stabilize mood, and improve functioning to return to work. Narrative Note: []
--- NOTE | 2025-10-26 09:01 | PCM.BH.PN ---
Intake Vital Signs 09/28/25 10:38 10/26/25 09:04 Height 5 ft 7 in 5 ft 7 in Intake Visit Reasons: follow up Allergies Penicillins Adverse Reaction (Verified 09/07/25 11:06) PT UNSURE OF REACTION quinidine Adverse Reaction (Verified 09/07/25 11:06) tachycardia Medications ?Medication ?Instructions ?Recorded ?Confirmed ?Type amlodipine 10 mg tablet (Norvasc) 10 mg PO DAILY 30 days #30 tabs 09/14/25 Rx clonidine HCl 0.1 mg tablet 0.1 mg PO TID 30 days #270 tabs 10/26/25 Rx hydroxyzine pamoate 50 mg capsule 50 mg PO BID PRN anxiety #180 caps 10/26/25 Rx lurasidone 40 mg tablet (Latuda) 40 mg PO DAILY 30 days #90 tabs 10/26/25 Rx quetiapine 100 mg tablet (Seroquel) 100 mg PO QHS 30 days #90 tabs 10/26/25 Rx sertraline 100 mg tablet (Zoloft) 150 mg (1.5 x 100 mg) PO DAILY 90 10/26/25 Rx days #135 tabs trazodone 50 mg tablet 50 mg PO QHS #90 tabs 10/26/25 Rx HPI () History of Present Illness History provided by: patient Chief complaint: doing well HPI: Kristi Ca is a 29 year old female who presents today follow up evaluation. 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 Does plan to move back to [place]. Got the job 2 days ago. Has been doing ok. Never ended up taking Zuranolone. Is sleeping fairly well. Appetite has been stable. Denies any SI/HI or AVH. Review of systems () Constitutional Denies: fever(s), chills, change in weight or fatigue Eyes Denies: change in vision or blurry vision Ears, Nose, Mouth, Throat Denies: throat pain, neck pain or change in hearing Cardiovascular Denies: chest pain, palpitations or dyspnea Respiratory Denies: dyspnea, cough or wheezing Gastrointestinal Reports: nausea and vomiting; Denies: abdominal pain, diarrhea or constipation Genitourinary Denies: dysuria or urinary frequency Musculoskeletal Denies: back pain, neck pain, joint pain or muscle weakness Integumentary/Breast Denies: rash or new lesions Neurological Denies: headache(s), dizziness or confusion Endocrine Denies: fatigue or excessive sweating Hematologic/Lymphatic Denies: easy bruising or easy bleeding Allergic/Immunologic Denies: wheezing Exam Mental Status Exam- Psych () Appearance casually dressed and adequately groomed Attitude cooperative Activity/Motor Behavior limited eye contact Speech regular rate Mood depressed (much better) Affect constricted Thought Process linear and logical Thought Content no delusions and no hallucinations Suicidal Ideation passive Homicidal Ideation none Attention intact Concentration intact Sensorium/Orientation awake and alert Memory/Cognition intact Insight fair Judgement fair Assessment & Plan () Assessment & Plan (1) Major depressive disorder, single episode, severe with peripartum onset: Plan: - never took zuranolone due to insurance issues, but doing much better regardless - no significant concerns with meds at this time; will continue as prescribed Medications: Refilled clonidine HCl 0.1 mg PO TID 30 days 270 tabs 0RF lurasidone must administer with food (at least 350 calories) 40 mg PO DAILY 30 days 90 tabs 0RF quetiapine 100 mg PO QHS 30 days 90 tabs 0RF hydroxyzine pamoate 50 mg PO BID PRN 180 caps 0RF anxiety trazodone 50 mg PO QHS 90 tabs 0RF Discontinued zuranolone administer with a high fat meal Discontinued Reason: By Stop Date 50 mg (2 x 25 mg) PO QDAY 14 days 28 caps 0RF F32.2 - Major depressive disorder, single episode, severe without psychotic features ondansetron HCl Discontinued Reason: Order Completed 4 mg PO Q8H PRN 15 tabs 1RF nausea and vomiting F32.2 - Major depressive disorder, single episode, severe without psychotic features Charges/Coding Behavior Health Behavior Health EST Pt E/M: 83091 Est Pt Level III
--- NOTE | 2025-10-26 20:47 | BH.MDN_ITS ---
Multi-Disciplinary Note Note 30-min Individual: Time Started:: 09:20 Date: 10/26/25 Purpose of session/treatment goals addressed:: Purpose of session was to address goals 1 and 2 from MTP. Eye Contact:: Good Motor Activity:: Appropriate Appearance:: Casual Speech:: Appropriate Mood:: Euthymic Affect:: Full Thoughts:: Linear, Logical and No evidence of hallucinations/delusions noted Staff Interventions:: CBT techniques, discharge planning and strengths perspective Client Response:: Client reported she is continuing to do really well with improved mood and decreased anxiety. Client noted excitement over being offered a new job that would allow her to move back to [place] which she believes is in her best interest for maintenance of progress. Client stated she has been working the fear ladder consistently and continues to see improvement with decrease anxiety. Client reported she is now able to independently care for her daughter for several hours which indicates significant treatment progress AEB client couldn't independently care for her daughter, due to severe anxiety, at all at the beginning of PHP. Client noted she is also now able to be alone with little to no anxiety. Client reported she still has some anxiety in the evening but stated the anxiety is more manageable to handle by using skills like belly breathing, grounding, and meditation. Client reported she is feeling ready to discharge from IOP, although she noted feeling anxious about not having as much support. Client stated she does plan to go back to [place] in two weeks to return back to work and start the process of selling her house. Client reported she does feel somewhat stressed about all the things she needs to get done in the next few weeks with getting ready to move back to [place]. Client noted although she is anxious she does have a lot of support. Client and therapist started discussion about maintenance skills and strategies that will be important for client to use consistently to maintain gains. Risks/Concerns:: Denies suicidal thoughts, plan, or intention to date. future oriented. Progress Toward Goals/Plan:: Progress noted with client reporting improved mood and significant decrease in anxiety. Client has reported working her fear ladders with being independent and taking care of her daughter independently, which were things that had caused significant distress and anxiety at the start of PHP and IOP. Client reports improve daily functioning, decreased daily anxiety, and starting to feel more like herself. Client stated she is finding it easier to engage with others and is making jokes again. Plan is for client to continue IOP to maintain gains, continue use of healthy coping skills, and prevent decompensation. Client will discharge from IOP next week. Client is established with Dr. Reaves for medication management and goes to counseling at [facility]. Time Stopped:: 09:50
--- NOTE | 2025-10-30 11:15 | BH.SGPN.GN ---
Behaviors/Verbalizations/Mental Status: []Pt alert and oriented, casually dressed and groomed. Eye contact good. Motor activity appropriate. Speech within normal limits. Affect congruent, mood content. Thoughts linear, logical, no signs of hallucinations or delusions. Client Response/Progress/Benefit: [] Pt responded well to session AEB taking notes and contributing to discussion throughout. Pt engaged as group continued discussion on distress tolerance and the mental health benefits of widening their overall Window of Tolerance. Pt engaged with group in experiential activity provided input on connections between variables in the activity and distress tolerance. Worked within small groups to identify strategies to increase distress tolerance and reduce hyper-arousal and hypo-arousal states. Identified wanting to begin implementing distress tolerance skills of: [email or web address]. journal prompt, self-care, and talking with her partner. Pt appeared to benefit from gaining insight and learning strategies to increase distress tolerance. Pt will continue IOP tx to promote use of healthy coping skills, challenge negative self-talk, and prevent decompensation. Narrative Note: []
== END 2025-11-05 07:21 | disposition home or self-care (01) ==
LOC: BHIOP 08:05
PROVIDERS: Referring Provider Student in an Organized Health Care Education/Training Program; Visit Provider Student in an Organized Health Care Education/Training Program
DX: F32.2 Major depressive disorder, single episode, severe without psychotic features (principal)
CPT/HCPCS: S9480; 90832; 90853